=== PATIENT | male | born 1950 | race Native Hawaiian/Other Pacific Islander ===

== ENCOUNTER 2017-02-22 08:50 | Inpatient (IN) | payer MEDICARE, MEDICAID ==
[2016-11-19 22:13] VITALS: PULSE 102
[2017-02-21 08:33] VITALS: BMI 16.1
[2017-02-22 09:25] LABS: BASO % 0.5 % (0.0-2.0); EOS % 0.3 % (0.0-4.0); HEMATOCRIT 31.9 % (35.0-51.0); LYMPH # 0.9 K/uL (1.0-4.3); LYMPH % 8.9 % (20.0-40.0); MEAN CELL VOLUME 89.2 fL (80.0-94.0); MEAN CORPUSCULAR HEMOGLOBIN 28.8 pg (27.0-31.0); MEAN CORPUSCULAR HGB CONC 32.3 g/dL (33.0-37.0); MONO # 0.7 K/uL (0.0-0.8); MONO % 7.2 % (0.0-10.0); PLATELET COUNT 346 K/uL (130-400); RED CELL DISTRIBUTION WIDTH 16.8 % (11.5-14.5); WHITE BLOOD COUNT 9.9 K/uL (4.8-10.8)
[2017-02-22 09:30] LABS: POTASSIUM 5.2 mmol/L (3.6-5.2)
[2017-02-22 09:34] LABS: CALCIUM 9.3 mg/dl (8.6-10.4)
[2017-02-22 09:51] LABS: BASOPHIL 1 % (0-2); EOSINOPHIL 1 % (0-4); NEUTROPHIL 77 % (50-75); REACTIVE LYMPHOCYTES 1 % (0-0); TOTAL CELLS COUNTED 100
[2017-02-22] MEDS ORDERED: Acetylcysteine 20% Inhal Soln (4ml) INH ONE (11:45)
[2017-02-22] MEDS ORDERED: Midazolam 2 MG/2 ML VIAL ONE ×2 (12:08→12:55)
[2017-02-22] MEDS ORDERED: Iodixanol 320 MG/ML 200 ML BOTTLE IV ONE (12:09)
[2017-02-22] MEDS ORDERED: Iodixanol 320 MG/ML 100 ML BOTTLE IV ONE (14:11)
--- NOTE | 2017-02-22 17:21 | CP.SDSHP ---
Same Day Surgery H & P - History Proposed Procedure: see enclosed H and P. - Allergies Allergies: Allergies No Known Allergies Allergy (Verified 02/22/17 09:06) - Physical Exam Vital Signs: Vital Signs 02/22/17 09:45 Temperature 97.9 F Pulse Rate 94 H Respiratory 18 Rate Blood Pressure 131/66 O2 Sat by Pulse 98 Oximetry Short Stay Discharge - Short Stay Discharge Admitting Diagnosis/Reason for Visit: PVD,NECROSIS OF RIGHT PHLANGES,ANNEURYSM TO LEFT E Disposition: HOME/ ROUTINE
--- NOTE | 2017-02-22 17:22 | OP ---
PROCEDURE DATE: 02/22/2017 PREOPERATIVE DIAGNOSES: Peripheral vascular disease with gangrene of the second and third toes of th e right foot. POSTOPERATIVE DIAGNOSIS: Chronic total occlusion of the right superficial femoral artery. PROCEDURES PERFORMED: Retrograde access of left common femoral artery, selective catheter placement in the right popliteal artery via contralateral approach, abdominal aortography with bilateral iliofe moral runoff, bilateral lower extremity angiography, selective angiography right popliteal artery, us e of the [place] Ocelot chronic total occlusion Lumivascular device, placement of distal embolic prot ection in the right popliteal artery, drug-coated balloon angioplasty of the right superficial femora l artery. SURGEON: Sergio Donovan MD. REFERRING PHYSICIAN: Carmelo Wheeler MD; Gab Khanna DPM. COMPLICATIONS: None. HISTORY: The patient is a 66-year-old [place] male with a past medical history of hypertension, hyp ercholesterolemia, peripheral vascular disease with previous endovascular intervention of bilateral s uperficial femoral arteries, who presents with gangrene of the second and third toes of the right maria t. The patient has undergone previous endovascular intervention with atherectomy and stenting of the right superficial femoral artery. The patient developed progressive gangrene and therefore was refe rred for endovascular intervention due to abnormal arterial duplex. DESCRIPTION OF PROCEDURE: After obtaining informed consent, the patient was prepped and draped in [facility] sterile fashion. The left groin was anesthetized with 2% lidocaine solution. A 5-Maltese sheath was inserted into the left common femoral artery via modified Seldinger technique. An Omniflush cath eter was advanced to infrarenal abdominal aorta. Abdominal aortography was performed. The catheter was positioned at the iliac bifurcation. Bilateral iliofemoral runoff was performed with full visual ization to the level of the feet bilaterally. The patient was then prepared for intervention which i s described separately below. FINDINGS: The infrarenal abdominal aorta is free of aneurysm or dissection. Bilateral renal arterie s arise normally and are free of stenosis. Eccentric calcification is noted in bilateral common coretta c and external iliac arteries. In the left leg, the left common femoral artery has moderate disease. There is diffuse disease of the profunda femoris. Diffuse disease of the proximal superficial femo ral artery is noted. There is a 95% stenosis of the left distal superficial femoral artery. A 90% s tenosis is noted of the proximal popliteal artery. A 2-vessel runoff is noted to the foot. In the right leg, there is diffuse disease of the right profunda femoris. There is a 100% occlusion of the proximal right superficial femoral artery. This is a chronic total occlusion. This is proxim al to a previously placed stent. The vessel reconstitutes at the level of the proximal right poplite al artery. There is mild disease in the popliteal artery with primarily 2-vessel runoff to the feet. INTERVENTION: The 5-Maltese sheath was exchanged for a 6 x 45 Cook sheath, which was selectively plac ed in the right common femoral artery via contralateral approach. The [employer] Ocelot Lumivascular shopp ronic total occlusion crossing device was loaded onto an [employer] ES guidewire and advanced to the proximal cap of the chronic total occlusion. Using Lumivascular technology, the Ocelot device wa s advanced through the chronic total occlusion with visualization of the intravascular space. The di stal cap was crossed using the Ocelot device. The guidewire was advanced to the popliteal artery. T he Ocelot device was removed. The patient had previously been anticoagulated with heparin to achieve a therapeutic activated clotting time. A Trailblazer catheter was advanced over the [employer] ES guidewire. Selective popliteal angiography was performed. The guidewire was removed and then Abb ame Barewire was advanced and placed into the distal peroneal artery. The Trailblazer catheter was r emoved. The Emboshield filter was deployed in the distal popliteal artery. Angioplasty was performed with a 4 x 200 mm balloon at nominal pressure. This balloon was removed. A drug-coated balloon angioplasty with prolonged balloon inflation was performed in the distal right superficial femoral artery with a 5 x 100 mm balloon. Subsequent angioplasty was then performed in a distal to proximal fashion. The balloon was then removed and a second 5 x 80 mm drug-coated balloon was positioned in the proximal p ortion of the right superficial femoral artery and prolonged balloon angioplasty was performed. The balloon was removed. Final angiography revealed brisk antegrade flow. There was some mild debris no jitendra within the previously stented segment. Given brisk antegrade flow, all catheters were then remov ed along with retrieval of the filter. The sheath was exchanged for a 6-Maltese short sheath. The pa tient was brought to recovery room in stable condition. CONCLUSIONS: Chronic total occlusion of the right superficial femoral artery, successful crossing us ing the [place] Ocelot chronic total occlusion crossing device, along with drug-coated balloon angiop lasty of the right superficial femoral artery. PLAN: The patient will continue with antiplatelet therapy. He will follow up with his marketing underwriter jaime lindsey further management. Sergio Donovan MD cc: [phone] TT: 02/22/2017 17:21:55 mn
[2017-02-22] MEDS ORDERED: Sodium Chloride 0.45% 1,000 ML IV SCH (17:30)
[2017-02-22] MEDS ORDERED: Oxycodone/Acetaminophen 5/325 mg Tab PO PRN (19:34)
[2017-02-22] MEDS: diltiaZEM 180 mg/24 Hours CD Cap PO SCH (20:20)
[2017-02-23 01:17] VITALS: TEMP 98
[2017-02-23 08:19] VITALS: BP 176/75; PULSE 75; RESP 19; O2SAT 97
[2017-02-23] MEDS: diltiaZEM 180 mg/24 Hours CD Cap PO SCH (09:42)
[2017-02-23] MEDS ORDERED: diltiaZEM 180 mg/24 Hours CD Cap PO SCH (10:00)
--- NOTE | 2017-02-23 17:36 | CP.PCM.PN ---
Subjective - Date & Time of Evaluation Date of Evaluation: 02/23/17 Time of Evaluation: 11:00 - Subjective Subjective: Alert, awake, no sob or chest pains, NAD. Objective - Vital Signs/Intake and Output Vital Signs (last 24 hours): Temp Pulse Resp BP Pulse Ox 98 F 75 19 176/75 H 97 02/23/17 08:18 02/23/17 08:18 02/23/17 08:18 02/23/17 08:18 02/23/17 08:18 Intake and Output: 02/23/17 02/23/17 06:59 18:59 Intake Total 620 Output Total 200 150 Balance 420 -150 - Labs Labs: 02/22/17 09:12 02/22/17 09:12 PT 10.9 SECONDS (9.7-12.2) 02/22/17 09:12 INR 1.0 02/22/17 09:12 APTT 33 SECONDS (21-34) 02/22/17 09:12 Assessment and Plan - Assessment and Plan (Free Text) Assessment: Patient is seen and examined. Awake, alert, non ambulatory secondary to severe PVD. denies sob or chest pains ,NAD. S/P angiogram yesterday, left groin with no hematoma. D/W DR Donovan, plan to discharge home with family today. To continue with prior medications and follow up in the office in 1 week.
== END 2017-02-23 13:10 | disposition home or self-care (01) | DRG 254 ==
LOC: C.CATHLAB 08:50 → C.5T 15:18
PROVIDERS: ADMIT Internal Medicine Cardiovascular Disease; ATTEND Internal Medicine Cardiovascular Disease
PROC: 047K3Z1 Dilation of Right Femoral Artery using Drug-Coated Balloon, Percutaneous Approach (ICD-10-PCS; principal; 2017-02-22 11:00)
DX: I70.268 Atherosclerosis of native arteries of extremities with gangrene, other extremity (principal); I10 Essential (primary) hypertension; E78.00 Pure hypercholesterolemia, unspecified

== ENCOUNTER 2017-07-19 10:08 | Inpatient (IN) | payer MEDICARE, MEDICAID ==
[2017-07-19 10:09] VITALS: BMI 16.0
--- NOTE | 2017-07-19 10:31 | C.PDOC ---
History Of Present Illness 67 year old male sent to ED for hyperkalemia and acute renal failure found on preop blood work. Patient scheduled to have angio done of RLE today by Dr. Donovan, however procedure not done due to abnormal labs. Patient c/o pain at B/L feet, has h/o severe PVD. He denies chest pain, SOB, fever. Time Seen by Provider: 07/19/17 10:15 Chief Complaint (Nursing): Medical Clearance History Per: Patient, Family History/Exam Limitations: no limitations Onset/Duration Of Symptoms: Persistent Severity: Moderate Past Medical History Reviewed: Historical Data, Nursing Documentation, Vital Signs Vital Signs: Last Vital Signs Temp 97.8 F 07/19/17 15:13 Pulse 83 07/19/17 15:13 Resp 20 07/19/17 15:13 BP 120/57 L 07/19/17 15:13 Pulse Ox 97 07/19/17 18:37 - Medical History PMH: Anxiety, Atrial Fibrillation, COPD, Diabetes, Emphysema, HTN, Hypercholesterolemia, Peripheral Edema (RT TOES GANGRENE), TIA (1995) - [facility] Procedures DILATION OF R FEM ART USING DRUG BLLN, PERC APPROACH (02/22/17) Family History: States: No Known Family Hx - Social History Hx Tobacco Use: Yes ("QUIT") Hx Alcohol Use: No Hx Substance Use: No - Immunization History Hx Tetanus Toxoid Vaccination: No Hx Influenza Vaccination: No Hx Pneumococcal Vaccination: No Review Of Systems Except As Marked, All Systems Reviewed And Found Negative. Constitutional: Negative for: Fever, Chills Cardiovascular: Negative for: Chest Pain Respiratory: Negative for: Shortness of Breath Gastrointestinal: Negative for: Nausea, Vomiting, Abdominal Pain, Diarrhea Musculoskeletal: Positive for: Other (B/L leg/foot pain with wounds on digits ) Physical Exam - Physical Exam Appears: Well, Non-toxic, No Acute Distress Skin: Warm, Dry Head: Normacephalic Eye(s): bilateral: Normal Inspection Oral Mucosa: Moist Cardiovascular: Rhythm Regular Respiratory: Normal Breath Sounds, No Rales, No Rhonchi, No Wheezing Gastrointestinal/Abdominal: Normal Exam, Bowel Sounds, Soft, No Tenderness Extremity: Tenderness, No Calf Tenderness, No Swelling, Other (right 2nd and 3rd toe chronic ulcers/gangrene, dark/chronic skin colors changes feet/lower extremties ) Neurological/Psych: Oriented x3 ED Course And Treatment - Laboratory Results Result Diagrams: 07/19/17 14:45 O2 Sat by Pulse Oximetry: 97 (RA) Pulse Ox Interpretation: Normal Progress Note: Prior preop blood work and EKG reviewed - no peaked T waves or QRS widening on EKG. However K significantly elevated (even when repeated). Patient given IV calcium gluconate, Insulin IV + 1amp D50, bicarbonate amp, kayexalate PO. IV morphine given for foot pain. Spoke with scraper hand Dr. Donovan, who requests patient be admitted to Dr. Cadet's service. Reevaluation Time: 12:35 Reassessment Condition: Improved (Patient resting comfortably, pain improved after IV morphine) - Physician Consult Information Physician Contacted: Janell Cadet Outcome Of Conversation: Discussed patient with Dr. Cadet, agrees with admission to his service for hyperkalemia, acute renal failure/dehydration. Disposition - Disposition Disposition: HOSPITALIZED Disposition Time: 11:38 Condition: STABLE - Clinical Impression Clinical Impression: Wound, open, toe, Hyperkalemia, Acute renal failure, Dehydration - Scribe Statement The provider has reviewed the documentation as recorded by the Scribe Decision To Admit - Pt Status Changed To: Hospital Disposition Of: Inpatient - Admit Certification Admit to Inpatient:: After my assessment, the patient will require hospitalization for at least two midnights. This is because of the severity of symptoms shown, intensity of services needed, and/or the medical risk in this patient being treated as an outpatient. - InPatient: Physician Admission Certification: I certify that this patient requires 2 or more midnights of care for the following reason:: see notes - . Bed Request Type: Telemetry Admitting Physician: Janell Cadet Patient Diagnosis: Wound, open, toe, Hyperkalemia, Acute renal failure, Dehydration
[2017-07-19] MEDS ORDERED: (Novolin R) Insulin Human Regular 100 units/ml vial IV STA (10:32)
[2017-07-19] MEDS ORDERED: Calcium Gluconate 4.65 MEQ in Dextrose 5% In Water 100 ML IV ONE (10:32)
[2017-07-19] MEDS ORDERED: Sod Polystyrene Sulf 15 gm/60 ml Oral Susp PO STA (10:33)
[2017-07-19] MEDS ORDERED: Sodium Chloride 0.9% 500 ML IV ONE (10:33)
[2017-07-19] MEDS ORDERED: Dextrose 50% SYRINGE Inj (50 ml) IVP STA (10:33)
[2017-07-19] MEDS ORDERED: Sodium Bicarbonate (8.4%) 50 Meq Syringe IVP ONE (10:33)
[2017-07-19] MEDS ORDERED: Sod Polystyrene Sulf 15 gm/60 ml Oral Susp ONE (10:48)
[2017-07-19] MEDS ORDERED: (Novolin R) Insulin Human Regular 100 units/ml vial ONE (10:48)
[2017-07-19] MEDS ORDERED: Calcium Gluconate 4.65 mEq/10 ml Inj ONE (10:49)
[2017-07-19] MEDS ORDERED: Sodium Chloride 0.9% 1,000 ML ONE (10:49)
[2017-07-19] MEDS ORDERED: Sodium Bicarbonate (8.4%) 50 Meq Syringe ONE (10:49)
[2017-07-19] MEDS ORDERED: Dextrose 50% SYRINGE Inj (50 ml) ONE (10:49)
[2017-07-19] MEDS ORDERED: Morphine 4 MG/ML VIAL ONE (11:33)
[2017-07-19] MEDS: Sodium Chloride 0.9% 1,000 ML IV SCH (12:37)
--- NOTE | 2017-07-19 12:58 | CP.PCM.PN ---
Subjective - Date & Time of Evaluation Date of Evaluation: 07/19/17 Time of Evaluation: 12:45 - Subjective Subjective: PGY2 medicine note for Dr. Martinez Patient is a 67 year old male with PMHx significant for PAD, HTN, DM, who was sent to the ER from same day surgery for hyperkalemia. Patient had blood work prior to planned left leg angio that showed potassium of 6.4, repeat 6.5. Creatinine was also elevated at 1.8. Patient's prior creatinine in our EMR was 1.5 in 01/2017. Patient denies prior history of hyperkalemia or renal insufficiency. Patient has had issues with poor circulation for many years and has had three prior angios. Patient had right leg angio with stent of superficial femoral artery in 01/[address] Donovan. Patient follows with Dr. Pelletier for podiatry as outpatient and Dr. Tan at wound care center. Patient was last seen at wound care this past Sunday, and started on Augmentin for purulent non-healing left foot wound. Patient was referred to Dr. Donovan office on Sunday and plan was made at that time for angio of left leg today. Patient denies history of kidney issues but does admit to poor water intake recently. Patient has been trying to drink less water so he will urinate less as he has difficulty ambulating due to foot wounds. History supplemented by patient's daughter. Patient is unsure of history of afib but daughter states she believes that is why patient is on digoxin. Patient had recent nuclear stress test in 05/2017 that showed normal perfusion, EF of 55-60%, normal size LV. Podiatry: [facility] Wound care: Domin[facility] Cardiology: [place] PMD: [place] meds: tramadol 50mg PO BID prn, terbinafine 250mg daily, januvia 100mg daily, lyrica 75mg TID, lisinopril 5mg daily, dutasteride 0.5mg daily, diltiazem 180mg ER, digoxin 0.25mg daily, plavix 75mg daily, cilostazol 100mg BID, invokamet 150/1000 BID, lipitor 40mg HS, asa 81mg, augmentin started on at wound care center Objective - Vital Signs/Intake and Output Vital Signs (last 24 hours): Temp Pulse Resp BP Pulse Ox 97.7 F 85 21 131/68 97 07/19/17 10:10 07/19/17 11:29 07/19/17 11:29 07/19/17 11:29 07/19/17 11:43 - Medications Medications: Current Medications Amoxicillin/Clavulanate Potassium (Augmentin 500 Mg-125 Mg Tab) 1 tab PO BID [facility] Aspirin (Ecotrin) 81 mg PO DAILY [facility] Cilostazol (Pletal) 100 mg PO BID [facility] Clopidogrel Bisulfate (Plavix) 75 mg PO DAILY [facility] Digoxin (Lanoxin) 0.25 mg PO DAILY [facility] Diltiazem HCl (Cardizem Cd) 180 mg PO DAILY [facility] Home Med (Atorvastatin [Lipitor]) 40 mg PO HS [facility] Home Med (Dutasteride [Dutasteride]) 0.5 mg PO DAILY [facility] Home Med (Multivit-Min/Fa/Lycopen/Lutein [Centrum Silver Tablet]) 1 each PO DAILY [facility] Sodium Chloride (Sodium Chloride 0.9%) 1,000 mls @ 100 mls/hr IV .Q10H [facility] Last Admin: 07/19/17 12:37 Dose: 100 mls/hr Insulin Human Regular (Novolin R) 0 unit SC ACHS [facility] PRN Reason: Protocol Pregabalin (Lyrica) 75 mg PO TID ARUN Tramadol HCl (Ultram) 50 mg PO BID PRN PRN Reason: Pain, moderate (4-7) - Constitutional Appears: Non-toxic, No Acute Distress, Chronically Ill - Head Exam Head Exam: ATRAUMATIC, NORMOCEPHALIC - Eye Exam Eye Exam: EOMI - ENT Exam ENT Exam: Mucous Membranes Dry - Respiratory Exam Respiratory Exam: Clear to Ausculation Bilateral, NORMAL BREATHING PATTERN. absent: Respiratory Distress - Cardiovascular Exam Cardiovascular Exam: +S1, +S2 - GI/Abdominal Exam GI & Abdominal Exam: Soft, Normal Bowel Sounds. absent: Tenderness - Extremities Exam Extremities Exam: absent: Pedal Edema Additional comments: darkened skin to lower extremities right foot with dry gangrene second toe left foot with first and second toes with thickened nails, erythematous - Neurological Exam Neurological Exam: Alert, Awake - Psychiatric Exam Psychiatric exam: Normal Affect - Skin Skin Exam: Warm Assessment and Plan - Assessment and Plan (Free Text) Assessment: Hyperkalemia Pt given calcium gluconate, D50, insulin IV, bicarb, kayexalate in ER Will repeat BMP at 3PM holding lisinopril for side effect of hyperkalemia EKG- NSR @87bpm, does not demonstrate peaked T waves monitor on telemetry Acute on chronic renal insufficiency Last creatinine in 01/2017 was 1.5, was 1.2 in 10/2016 patient clinically dry on examination patient given 1L saline bolus in ER, will continue IVF nephrology, Dr. Daniels, consulted- help appreciated will hold invokamet and Januvia as patient has reduced renal function Peripheral Vascular disease Patient with history of angriography x 3 Continue home medications plavix 75mg daily, cilostazol 100mg BID, aspirin 81mg continue tramadol 50mg PO BID prn for pain Dr. Donovan consulted- help appreciated Bilateral foot wounds right foot with dry gangrene second and third toes non-healing wounds to left foot s/p injury continue wound care patient started Augmentin on Sunday, prescribed by wound care center will start renal dose of zosyn HTN holding lisinopril, will continue to monitor and add medication if necessary Hx A-fib pt unsure of history but takes digoxin continue home medication digoxin 0.25mg daily, diltiazem 180 CD Diabetes holding invokamet and januvia due to renal insufficiency, will give sliding scale with accuchecks ACHS continue Lyrica 75mg TID for neuropathy diabetic diet patient reports last A1c in March was less than 7 BPH continue dutasteride 0.5mg daily Hyperlipidemia continue equivalent for lipitor 50mg HS Prophylactic measure heparin 5000u sc q12h All medical management as per Dr. Martinez
[2017-07-19] MEDS: Piperacill/Tazo 2.25gm in Dex 2.25 GM/50 ML BAG IVPB SCH ×2 (14:49→21:21)
[2017-07-19 14:55] LABS: POTASSIUM 5.4 mmol/L (3.6-5.2)
[2017-07-19 14:59] LABS: CALCIUM 9.3 mg/dl (8.6-10.4)
[2017-07-19] MEDS ORDERED: Sod Polystyrene Sulf 15 gm/60 ml Oral Susp PO ONE ×2 (15:30→17:00)
[2017-07-19] MEDS: (Novolin R) Insulin Human Regular 100 units/ml vial SC SCH ×2 (17:12→21:20)
[2017-07-19] MEDS: Cilostazol 100 mg Tab UD PO SCH (17:52)
[2017-07-19] MEDS ORDERED: Amoxicillin-Clav 500-125 mg Tab PO SCH (18:00)
[2017-07-20] MEDS: Sodium Chloride 0.9% 1,000 ML IV SCH ×4 (01:56→23:16)
[2017-07-20] MEDS: Piperacill/Tazo 2.25gm in Dex 2.25 GM/50 ML BAG IVPB SCH ×4 (02:14→19:55)
[2017-07-20] MEDS: (Novolin R) Insulin Human Regular 100 units/ml vial SC SCH ×4 (07:37→23:14)
[2017-07-20 08:08] LABS: BASO % 0.5 % (0.0-2.0); EOS # 0.1 K/uL (0.0-0.7); EOS % 0.8 % (0.0-4.0); HEMATOCRIT 33.9 % (35.0-51.0); LYMPH # 1.3 K/uL (1.0-4.3); LYMPH % 13.9 % (20.0-40.0); MEAN CELL VOLUME 91.5 fL (80.0-94.0); MEAN CORPUSCULAR HEMOGLOBIN 30.4 pg (27.0-31.0); MEAN CORPUSCULAR HGB CONC 33.2 g/dL (33.0-37.0); MEAN PLATELET VOLUME 7.1 fL (7.2-11.7); MONO # 0.9 K/uL (0.0-0.8); RED CELL DISTRIBUTION WIDTH 16.5 % (11.5-14.5); WHITE BLOOD COUNT 9.2 K/uL (4.8-10.8)
--- NOTE | 2017-07-20 08:08 | CP.PCM.CON ---
History of Present Illness - History of Present Illness History of Present Illness: Patient is a 67 year old male with PMH HT, atrial fibrillation, PAD, and CAD who is admittedfor hyperkalemia and dehydration. The patient was brought in electively for angiogram and likely intervention of the LLE due to progressive ischemia of the L foot. The patient has had previous bilateral endovascular interventions. The patient recently had trauma to his left foot. This occurred one month ago. The daughter thought the discoloration of the foot was due to ecchymosis but a reviewe by his medical laboratory technologist felt the foot was becoming ischemic. He was found to have hyperkalemia and renal insufficiency. The procedure was cancelled. He denies chest pain or dyspnea. EKG showed no evidence of peaked T waves. Review of Systems - Constitutional Constitutional: absent: As Per HPI, Anorexia, Chills, Daytime Sleepiness, Excessive Sweating, Fatigue, Fever, Frequent Falls, Headache, Increased Appetite , Lethargy, Malaise, Night Sweats, Snoring, Sleep Apnea, Weight Gain, Weight Loss, Weakness, Other - EENT Eyes: absent: As Per HPI, Blind Spots, Blurred Vision, Change in Vision, Decreased Night Vision, Diplopia, Discharge, Dry Eye, Exophthalmos, Floaters, Irritation, Itchy Eyes, Loss of Peripheral Vision, Pain, Photophobia, Requires Corrective Lenses, Sees Flashes, Spots in Vision, Tunnel Vision, Other Visual Disturbances, Loss of Vision, Other Ears: absent: As Per HPI, Decreased Hearing, Ear Discharge, Ear Pain, Tinnitus, Abnormal Hearing, Disequilibrium, Dizziness, Other Nose/Mouth/Throat: absent: As Per HPI, Epistaxis, Nasal Congestion, Nasal Discharge, Nasal Obstruction, Nasal Trauma, Nose Pain, Post Nasal Drip, Sinus Pain, Sinus Pressure, Bleeding Gums, Change in Voice, Dental Pain, Dry Mouth, Dysphagia, Halitosis, Hoarsness, Lip Swelling, Mouth Lesions, Mouth Pain, Odynophagia, Sore Throat, Throat Swelling, Tongue Swelling, Facial Pain, Neck Pain, Neck Mass, Other - Cardiovascular Cardiovascular: absent: As Per HPI, Acrocyanosis, Chest Pain, Chest Pain at Rest , Chest Pain with Activity, Claudication, Diaphoresis, Dyspnea, Dyspnea on Exertion, Edema, Irregular Heart Rhythm, Pain Radiating to Arm/Neck/Jaw, Leg Edema, Leg Ulcers, Lightheadedness, Orthopnea, Palpitations, Paroxysmal Nocturnal Dyspnea, Pedal Edema, Radiating Pain, Rapid Heart Rate, Slow Heart Rate, Syncope, Other - Respiratory Respiratory: absent: As Per HPI, Cough, Dyspnea, Hemoptysis, Dyspnea on Exertion , Wheezing, Snoring, Stridor, Pain on Inspiration, Chest Congestion, Excessive Mucous Production, Change in Mucous Color, Pain with Coughing, Other - Gastrointestinal Gastrointestinal: absent: As Per HPI, Abdominal Pain, Belching, Bloating, Change in Bowel Habits, Change in Stool Character, Coffee Ground Emesis, Constipation, Cramping, Diarrhea, Dyspepsia, Dysphagia, Early Satiety, Excessive Flatus, Fecal Incontinence, Heartburn, Hematemesis, Hematochezia, Loose Stools, Melena, Nausea, Odynophagia, Temesmus, Vomiting, Other - Genitourinary Genitourinary: absent: As Per HPI, Change in Urinary Stream, Difficulty Urinating, Dysuria, Flank Pain, Hematuria, Pyuria, Nocturia, Urinary Incontinence, Urinary Frequency, Urinary Hesitance, Urinary Urgency, Voiding Freq/Small Amts, Freq UTI, Hx Renal/Bladder Calculi, Hx /Renal Surgery, Bladder Distension, Other - Musculoskeletal Musculoskeletal: Radiating Pain into Limb - Integumentary Integumentary: absent: As Per HPI, Acne, Alopecia, Bleeding Lesions, Change in Hair, Change in Nails, Change in Pigmentation, Changing Lesions, Dry Skin, Erythema, Furuncle, Hirsutism, Lesions, New Lesions, Non-Healing Lesions, Photosensitivity, Pruritus, Rash, Skin Pain, Skin Ulcer, Sores, Striae, Swelling , Unusual Bruising, Wounds, Jaundice, Other - Neurological Neurological: absent: As Per HPI, Abnormal Gait, Abnormal Hearing, Abnormal Movements, Abnormal Speech, Behavioral Changes, Burning Sensations, Confusion, Convulsions, Disequilibrium, Dizziness, Numbness, Focal Weakness, Frequent Falls , Headaches, Lack of Coordination, Loss of Vision, Memory Loss, Paresthesias, Radicular Pain, Restless Legs, Sensory Deficit, Syncope, Tingling, Tremor, Vertigo, Weakness, Other Visual Disturbances, Other - Psychiatric Psychiatric: absent: As Per HPI, Abnormal Sleep Pattern, Anhedonia, Anxiety, Auditory Hallucinations, Behavioral Changes, Change in Appetite, Change in Libido, Confusion, Depression, Difficulty Concentrating, Hallucinations, Homicidal Ideation, Hopelessness, Irritability, Memory Loss, Mood Swings, Panic Attacks, Paranoia, Suicidal Ideation, Visual Hallucinations, Tactile Hallucinations, Other - Endocrine Endocrine: absent: As Per HPI, Change in Body Appearance, Change in Libido, Cold Intolorance, Deepening of Voice, Excessive Sweating, Fatigue, Flushing, Heat Intolorance, Increase in Ring/Shoe/Hat Size, Palpitations, Polydipsia, Polyphagia, Polyuria, Other - Hematologic/Lymphatic Hematologic: absent: As Per HPI, Easy Bleeding, Easy Bruising, Lymphadenopathy, Other Past Patient History - Past Medical History & Family History Past Medical History?: Yes - Past Social History Smoking Status: Former Smoker - CARDIAC Hx Atrial Fibrillation: Yes Hx Hypercholesterolemia: Yes Hx Hypertension: Yes Hx Peripheral Edema: Yes (RT TOES GANGRENE) - PULMONARY Hx Chronic Obstructive Pulmonary Disease (COPD): Yes Hx Emphysema: Yes - NEUROLOGICAL Hx Transient Ischemic Attacks (TIA): Yes (1995) - HEENT Hx HEENT Problems: Yes () - ENDOCRINE/METABOLIC Hx Endocrine Disorders: Yes Hx Diabetes Mellitus Type 2: Yes - HEMATOLOGICAL/ONCOLOGICAL Hx Blood Disorders: No - INTEGUMENTARY Hx Dermatological Problems: Yes Other/Comment: Toenail fungus on right leg, dark color on toes 1, 2,3,4 similar to gangrene as stated by Daughter. TOES ARE BLACKENED DRY GANGRENE RT FOOT/ WOUND LEFT FOOT - MUSCULOSKELETAL/RHEUMATOLOGICAL Hx Musculoskeletal Disorders: Yes Hx Falls: Yes - GASTROINTESTINAL Hx Gastrointestinal Disorders: No - GENITOURINARY/GYNECOLOGICAL Hx Genitourinary Disorders: No - PSYCHIATRIC Hx Anxiety: Yes Hx Substance Use: No - SURGICAL HISTORY Hx Surgeries: Yes Hx Angiogram: Yes (SEVERAL) Hx Angioplasty: Yes (RT LEG WITH STENT) - ANESTHESIA Hx Anesthesia: Yes Hx Anesthesia Reactions: No Hx Malignant Hyperthermia: No Has any member of the family had a problem w/ anesthesia?: No Meds Allergies/Adverse Reactions: Allergies Allergy/AdvReac Type Severity Reaction Status Date / Time No Known Allergies Allergy Verified 07/19/17 10:21 - Medications Medications: Current Medications Aspirin (Ecotrin) 81 mg PO DAILY [facility] Cilostazol (Pletal) 100 mg PO BID [facility] Last Admin: 07/19/17 17:52 Dose: 100 mg Clopidogrel Bisulfate (Plavix) 75 mg PO DAILY [facility] Digoxin (Lanoxin) 0.25 mg PO DAILY [facility] Diltiazem HCl (Cardizem Cd) 180 mg PO BID [facility] Finasteride (Proscar) 5 mg PO DAILY [facility] Heparin Sodium (Porcine) (Heparin) 5,000 units SC Q12 [facility] Last Admin: 07/19/17 21:22 Dose: 5,000 units Sodium Chloride (Sodium Chloride 0.9%) 1,000 mls @ 100 mls/hr IV .Q10H [facility] Last Admin: 07/20/17 01:56 Dose: Not Given Piperacillin Sod/Tazobactam Sod (Zosyn 2.25 Gm Iv Premix) 2.25 gm in 50 mls @ 100 mls/hr IVPB Q6H [facility] Last Admin: 07/20/17 02:14 Dose: 100 mls/hr Insulin Human Regular (Novolin R) 0 unit SC ACHS [facility] PRN Reason: Protocol Last Admin: 07/20/17 07:37 Dose: Not Given Multivitamins (Hexavitamin) 1 tab PO DAILY [facility] Pregabalin (Lyrica) 75 mg PO TID [facility] Last Admin: 07/19/17 17:52 Dose: 75 mg Rosuvastatin Calcium (Crestor) 20 mg PO HS [facility] Last Admin: 07/19/17 21:22 Dose: 20 mg Tramadol HCl (Ultram) 50 mg PO BID PRN PRN Reason: Pain, moderate (4-7) Last Admin: 07/19/17 20:43 Dose: 50 mg Physical Exam - Constitutional Appears: Non-toxic - Head Exam Head Exam: NORMAL INSPECTION - Eye Exam Eye Exam: Normal appearance - ENT Exam ENT Exam: Mucous Membranes Dry - Neck Exam Neck exam: Positive for: Full Rom - Respiratory Exam Respiratory Exam: NORMAL BREATHING PATTERN - Cardiovascular Exam Cardiovascular Exam: Irregular Rhythm - GI/Abdominal Exam GI & Abdominal Exam: Normal Bowel Sounds - Rectal Exam Rectal Exam: Deferred - Extremities Exam Extremities exam: Positive for: pedal edema Additional comments: discoloration of th forefoot of the left. necrotic toe of the right foot. - Back Exam Back exam: NORMAL INSPECTION - Neurological Exam Neurological exam: Alert, Oriented x3 - Psychiatric Exam Psychiatric exam: Normal Affect - Skin Skin Exam: Normal Color Results - Vital Signs Recent Vital Signs: Last Vital Signs Temp 97.5 F L 07/20/17 08:00 Pulse 108 H 07/20/17 08:00 Resp 19 07/20/17 08:00 BP 159/79 H 07/20/17 08:00 Pulse Ox 98 07/20/17 08:00 - Labs Result Diagrams: 07/19/17 14:45 Labs: Laboratory Results - last 24 hr 07/19/17 07/19/17 07/19/17 14:45 16:45 21:19 Sodium 141 Potassium 5.4 H Chloride 104 Carbon Dioxide 26 Anion Gap 16 BUN 32 H Creatinine 1.6 H Est GFR ( Amer) 52 Est GFR (Non-Af Amer) 43 POC Glucose (mg/dL) 106 136 H Random Glucose 73 L Calcium 9.3 07/20/17 06:53 Sodium Potassium Chloride Carbon Dioxide Anion Gap BUN Creatinine Est GFR ( Amer) Est GFR (Non-Af Amer) POC Glucose (mg/dL) 109 Random Glucose Calcium - EKG Data EKG Interpreted by: Myself Assessment & Plan (1) PAD (peripheral artery disease) Assessment and Plan: will defer angiogram at this time. Long discussion with the daughter regarding risk of contrast induced nephropathy and arrhythmia due to contrast and hyperkalemia. recommend antibiotics. order arterial duplex. Status: Acute (2) Acute renal failure Assessment and Plan: IV hydration. recommend renal evaluation Status: Acute (3) Hyperkalemia Assessment and Plan: medical therapy to reduce potassium Status: Acute
--- NOTE | 2017-07-20 08:15 | CP.PCM.PN ---
Subjective - Date & Time of Evaluation Date of Evaluation: 07/20/17 Time of Evaluation: 07:30 - Subjective Subjective: patient has less pain. Objective - Vital Signs/Intake and Output Vital Signs (last 24 hours): Temp Pulse Resp BP Pulse Ox 97.5 F L 108 H 19 159/79 H 98 07/20/17 08:00 07/20/17 08:00 07/20/17 08:00 07/20/17 08:00 07/20/17 08:00 Intake and Output: 07/20/17 07/20/17 06:59 18:59 Intake Total 2250 Output Total 600 Balance 1650 - Medications Medications: Current Medications Aspirin (Ecotrin) 81 mg PO DAILY [facility] Cilostazol (Pletal) 100 mg PO BID [facility] Last Admin: 07/19/17 17:52 Dose: 100 mg Clopidogrel Bisulfate (Plavix) 75 mg PO DAILY [facility] Digoxin (Lanoxin) 0.25 mg PO DAILY [facility] Diltiazem HCl (Cardizem Cd) 180 mg PO BID [facility] Finasteride (Proscar) 5 mg PO DAILY [facility] Heparin Sodium (Porcine) (Heparin) 5,000 units SC Q12 [facility] Last Admin: 07/19/17 21:22 Dose: 5,000 units Sodium Chloride (Sodium Chloride 0.9%) 1,000 mls @ 100 mls/hr IV .Q10H [facility] Last Admin: 07/20/17 01:56 Dose: Not Given Piperacillin Sod/Tazobactam Sod (Zosyn 2.25 Gm Iv Premix) 2.25 gm in 50 mls @ 100 mls/hr IVPB Q6H [facility] Last Admin: 07/20/17 02:14 Dose: 100 mls/hr Insulin Human Regular (Novolin R) 0 unit SC ACHS [facility] PRN Reason: Protocol Last Admin: 07/20/17 07:37 Dose: Not Given Multivitamins (Hexavitamin) 1 tab PO DAILY [facility] Pregabalin (Lyrica) 75 mg PO TID [facility] Last Admin: 07/19/17 17:52 Dose: 75 mg Rosuvastatin Calcium (Crestor) 20 mg PO HS [facility] Last Admin: 07/19/17 21:22 Dose: 20 mg Tramadol HCl (Ultram) 50 mg PO BID PRN PRN Reason: Pain, moderate (4-7) Last Admin: 07/19/17 20:43 Dose: 50 mg - Labs Labs: 07/19/17 14:45 - Constitutional Appears: Non-toxic - Head Exam Head Exam: NORMAL INSPECTION - Eye Exam Eye Exam: Normal appearance - ENT Exam ENT Exam: Mucous Membranes Moist - Neck Exam Neck Exam: Full ROM - Respiratory Exam Respiratory Exam: NORMAL BREATHING PATTERN - Cardiovascular Exam Cardiovascular Exam: Irregular Rhythm - GI/Abdominal Exam GI & Abdominal Exam: Normal Bowel Sounds - Rectal Exam Rectal Exam: Deferred - Extremities Exam Extremities Exam: absent: Pedal Edema - Back Exam Back Exam: NORMAL INSPECTION - Neurological Exam Neurological Exam: Alert - Psychiatric Exam Psychiatric exam: Normal Affect - Skin Skin Exam: Normal Color Assessment and Plan (1) PAD (peripheral artery disease) Assessment & Plan: recommend arterial duplex. Status: Acute (2) Acute renal failure Assessment & Plan: improving with hydration Status: Acute (3) Hyperkalemia Assessment & Plan: improved Status: Acute (4) Atrial fibrillation Assessment & Plan: increase cardizem. not candidate for anticoagulation. Status: Acute
[2017-07-20 08:30] LABS: CHLORIDE 109 mmol/L (98-107); POTASSIUM 5.3 mmol/L (3.6-5.2); SODIUM 143 mmol/L (132-148)
[2017-07-20 08:32] LABS: BILIRUBIN,TOTAL 0.4 mg/dL (0.2-1.3); GFR AFRICAN-AMERICAN > 60
[2017-07-20 08:33] LABS: ALB/GLOB RATIO 1.1 (1.0-2.1); ALKALINE PHOSPHATASE 100 U/L (38-126); ALT/SGPT 48 U/L (21-72); AST/SGOT 40 U/L (17-59); BLOOD UREA NITROGEN 21 mg/dL (9-20); CALCIUM 8.7 mg/dl (8.6-10.4); CARBON DIOXIDE 24 mmol/L (22-30); GLUCOSE,RANDOM 92 mg/dL (75-110); PHOSPHOROUS 3.6 mg/dL (2.5-4.5); TOTAL PROTEIN 7.3 g/dL (6.3-8.3)
[2017-07-20 08:34] LABS: MAGNESIUM 1.4 mg/dL (1.6-2.3)
[2017-07-20] MEDS ORDERED: Sod Polystyrene Sulf 15 gm/60 ml Oral Susp PO ONE (09:45)
[2017-07-20] MEDS ORDERED: diltiaZEM 180 mg/24 Hours CD Cap PO SCH (10:00)
[2017-07-20] MEDS: Multiple Vitamins Tab PO SCH (10:15)
[2017-07-20] MEDS: Cilostazol 100 mg Tab UD PO SCH ×2 (10:16→17:54)
[2017-07-20] MEDS: Digoxin 250 mcg (0.25 mg) Tab PO SCH (10:16)
[2017-07-20] MEDS: Magnesium Oxide 400 mg Tab UD PO SCH ×2 (12:57→19:54)
[2017-07-20] MEDS: diltiaZEM 180 mg/24 Hours CD Cap PO SCH ×2 (13:22→17:53)
[2017-07-20] MEDS: Acetylcysteine 20% Inhal Soln (4ml) PO SCH ×2 (13:40→21:48)
[2017-07-20 14:01] LABS: CHLORIDE 108 mmol/L (98-107); POTASSIUM 4.3 mmol/L (3.6-5.2); SODIUM 145 mmol/L (132-148)
[2017-07-20 14:04] LABS: CARBON DIOXIDE 23 mmol/L (22-30); GFR AFRICAN-AMERICAN > 60
[2017-07-20 14:05] LABS: BLOOD UREA NITROGEN 19 mg/dL (9-20); CALCIUM 9.3 mg/dl (8.6-10.4); GLUCOSE,RANDOM 125 mg/dL (75-110)
--- NOTE | 2017-07-20 15:48 | CP.PCM.PN ---
Subjective - Date & Time of Evaluation Date of Evaluation: 07/20/17 Time of Evaluation: 09:10 - Subjective Subjective: PGY2 medicine progress note for Dr. Martinez: Patient seen and examined. Patient eating well, no complaints at this time. Family present at bedside. Objective - Vital Signs/Intake and Output Vital Signs (last 24 hours): Temp Pulse Resp BP Pulse Ox 98 F 119 H 20 122/60 97 07/20/17 15:20 07/20/17 15:20 07/20/17 15:20 07/20/17 15:20 07/20/17 15:20 Intake and Output: 07/20/17 07/20/17 06:59 18:59 Intake Total 2250 Output Total 600 Balance 1650 - Medications Medications: Current Medications Acetylcysteine (Acetylcysteine 20%) 6 ml PO BID [facility] Stop: 07/21/17 18:01 Last Admin: 07/20/17 13:40 Dose: 6 ml Aspirin (Ecotrin) 81 mg PO DAILY [facility] Last Admin: 07/20/17 10:16 Dose: 81 mg Cilostazol (Pletal) 100 mg PO BID [facility] Last Admin: 07/20/17 10:16 Dose: 100 mg Clopidogrel Bisulfate (Plavix) 75 mg PO DAILY [facility] Last Admin: 07/20/17 10:16 Dose: 75 mg Digoxin (Lanoxin) 0.25 mg PO DAILY [facility] Last Admin: 07/20/17 10:16 Dose: 0.25 mg Diltiazem HCl (Cardizem Cd) 180 mg PO BID [facility] Last Admin: 07/20/17 13:22 Dose: 180 mg Finasteride (Proscar) 5 mg PO DAILY [facility] Last Admin: 07/20/17 10:15 Dose: 5 mg Heparin Sodium (Porcine) (Heparin) 5,000 units SC Q12 [facility] Last Admin: 07/20/17 10:14 Dose: 5,000 units Sodium Chloride (Sodium Chloride 0.9%) 1,000 mls @ 100 mls/hr IV .Q10H [facility] Last Admin: 07/20/17 13:49 Dose: Not Given Piperacillin Sod/Tazobactam Sod (Zosyn 2.25 Gm Iv Premix) 2.25 gm in 50 mls @ 100 mls/hr IVPB Q6H [facility] Last Admin: 07/20/17 13:40 Dose: 100 mls/hr Insulin Human Regular (Novolin R) 0 unit SC ACHS [facility] PRN Reason: Protocol Last Admin: 07/20/17 13:40 Dose: 1 unit Magnesium Oxide (Mag-Ox) 400 mg PO BID [facility] Stop: 07/25/17 12:01 Last Admin: 07/20/17 12:57 Dose: 400 mg Multivitamins (Hexavitamin) 1 tab PO DAILY [facility] Last Admin: 07/20/17 10:15 Dose: 1 tab Pregabalin (Lyrica) 75 mg PO TID [facility] Last Admin: 07/20/17 13:40 Dose: 75 mg Rosuvastatin Calcium (Crestor) 20 mg PO HS [facility] Last Admin: 07/19/17 21:22 Dose: 20 mg Tramadol HCl (Ultram) 50 mg PO BID PRN PRN Reason: Pain, moderate (4-7) Last Admin: 07/19/17 20:43 Dose: 50 mg - Labs Labs: 07/20/17 08:01 07/20/17 13:48 - Constitutional Appears: No Acute Distress, Chronically Ill - Head Exam Head Exam: ATRAUMATIC, NORMOCEPHALIC - Eye Exam Eye Exam: EOMI - ENT Exam ENT Exam: Mucous Membranes Dry - Respiratory Exam Respiratory Exam: Clear to Ausculation Bilateral - Cardiovascular Exam Cardiovascular Exam: +S1, +S2 - GI/Abdominal Exam GI & Abdominal Exam: Soft, Normal Bowel Sounds. absent: Tenderness - Extremities Exam Additional comments: discoloration of b/l lower extremities necrotic toes right foot discolored toes left foot - Neurological Exam Neurological Exam: Alert, Awake - Psychiatric Exam Psychiatric exam: Normal Affect - Skin Skin Exam: Warm Assessment and Plan - Assessment and Plan (Free Text) Assessment: Hyperkalemia repeat potassium today 4.3, continue to monitor and give IVF Pt given calcium gluconate, D50, insulin IV, bicarb, kayexalate in ER holding lisinopril for side effect of hyperkalemia EKG- NSR @87bpm, does not demonstrate peaked T waves monitor on telemetry Acute on chronic renal insufficiency Creatinine this afternoon 1.2 Last creatinine in 01/2017 was 1.5, was 1.2 in 10/2016 patient clinically dry on examination patient given 1L saline bolus in ER, will continue IVF nephrology, Dr. Daniels, consulted- help appreciated - check renal US, urine microalbumin, creatinine, protein - acetylcysteine 20% 6ml x 4 doses to be given - mag oxide 400mg PO BID to be given x 5 days will hold invokamet and Januvia as patient has reduced renal function Peripheral Vascular disease Patient with history of angriography x 3 Continue home medications plavix 75mg daily, cilostazol 100mg BID, aspirin 81mg continue tramadol 50mg PO BID prn for pain Dr. Donovan consulted- help appreciated - recommend lower extremity arterial duplex Bilateral foot wounds right foot with dry gangrene second and third toes non-healing wounds to left foot s/p injury continue wound care patient started Augmentin on Sunday, prescribed by wound care center will start renal dose of zosyn HTN holding lisinopril, will continue to monitor and add medication if necessary Hx A-fib pt unsure of history but takes digoxin continue home medication digoxin 0.25mg daily, diltiazem 180 CD increased to BID by Dr. Donovan Diabetes holding invokamet and januvia due to renal insufficiency, will give sliding scale with accuchecks ACHS continue Lyrica 75mg TID for neuropathy diabetic diet patient reports last A1c in March was less than 7 BPH continue dutasteride 0.5mg daily (nonformulary, on finasteride here) Hyperlipidemia continue equivalent for lipitor 50mg HS Prophylactic measure heparin 5000u sc q12h All medical management as per Dr. Martinez
[2017-07-20 16:45] LABS: RBC URINE < 1 /hpf (0-3); URINE BILIRUBIN NEGATIVE (NEGATIVE); URINE BLOOD NEGATIVE (NEGATIVE); URINE COLOR Straw (YELLOW); URINE GLUCOSE (UA) 3+ mg/dL (Normal); URINE KETONE NEGATIVE (NEGATIVE); URINE LEUKOCYTE ESTERASE NEG Leu/uL (Negative); URINE PROTEIN NEGATIVE (NEGATIVE); URINE UROBILINOGEN NORMAL mg/dL (0.2-1.0); WBC URINE < 1 /hpf (0-5)
[2017-07-21] MEDS: Piperacill/Tazo 2.25gm in Dex 2.25 GM/50 ML BAG IVPB SCH ×3 (02:13→14:32)
--- NOTE | 2017-07-21 05:21 | CON ---
DATE: 07/20/2017 INITIAL NEPHROLOGY CONSULTATION CHIEF COMPLAINT: Bilateral foot wound. REASON FOR CONSULTATION: Acute kidney injury and hyperkalemia. While in room, the patient's family at bedside and EMR. HISTORY OF PRESENT ILLNESS: The patient is a 67-year-old male with a history of diabetes, diagnosed in 2013, although the patient did not have any prior followup and as per the family, the patient had undiagnosed diabetes for a longtime; also history of heavy ex-smoker, stopped 1 year ago; history of alcohol abuse in the past, stopped many years ago; history of peripheral vascular disease, bilateral chronic wound, also decreased appetite, history of atrial fibrillation, COPD, emphysema, hyperlipidemia, TIA in the past. He was scheduled for bilateral angiogram, but admitted because of hyperkalemia and YUE. The patient at this time has wound in the bilateral feet, feels in his usual health. Denied any nausea, vomiting, chest pain, palpitations. Denied any urinary complaints. He states he urinates quite a lot. He takes medications as Invokana, which makes him pee and urinates quite a bit. As per the family, he has limited oral intake, as he is not able to move much because of his wound infection in the feet. Otherwise, no recent contrast exposure. No NSAIDs use. As per the family, blood pressure usually on the low side at home. PAST MEDICAL HISTORY: Notable for anxiety, atrial fibrillation, COPD, diabetes, emphysema, hypertension, hyperlipidemia, peripheral vascular disease and TIA. PAST SURGICAL PROCEDURE: Include peripheral vascular disease intervention with angioplasty. SOCIAL HISTORY: Ex-smoker, ex-alcohol abuse, no drug abuse. FAMILY HISTORY: No history of dialysis. Brother has history of kidney disease, diabetes, he has . ALLERGIES: NO KNOWN DRUG ALLERGIES. MEDICATIONS: Home medications were also reviewed. REVIEW OF SYSTEMS: GENERAL: The patient is in his usual health. Denied any fever or chills, has lost approximately 20 pounds over the last few years. Has decreased appetite. NEUROLOGIC: Denied any headache, tingling, numbness, dizziness, weakness. EYES: Denied any watery or itchy eyes. ENT: Denied any ear pain, sore throat or congestion. CARDIOVASCULAR: Denied any chest pain, palpitation, dizziness or syncope. RESPIRATORY: Denied any shortness of breath, cough, phlegm, fever or chills. GASTROINTESTINAL: Denied any nausea, vomiting, constipation, diarrhea, change in bowel habit. GENITOURINARY: Denied any burning urination, no blood in the urine. Does report increased urine output with increased frequency. Denied any intermittency, hesitancy, denies any blood in the urine. MUSCULOSKELETAL: Denied any joint pain, joint swelling. SKIN: Denied any rash, ulceration except wound in the feet. LYMPHATICS: Denied any lymph node swelling. HEMATOLOGIC: Denied active bleeding. PSYCHIATRIC: Denied any anxiety, depression, hallucinations. PHYSICAL EXAMINATION: GENERAL: The patient appeared comfortable, cachectic with a BMI of 16, otherwise not in acute distress, pleasant and cooperative. VITAL SIGNS: Afebrile, temperature 100.8, blood pressure 159/79, saturation is well maintained. His weight is 102 pounds with BMI of 16. NEUROLOGIC: Thin, alert, awake, oriented x3. Moving all 4 extremities. Strength and sensation is intact. EYES: Pupils reactive. No icterus. ENT: No lesion, ulceration, thrush. Pharynx; normal tonsils. No lesions. NECK: Supple. No lymphadenopathy. No thrill. CARDIOPULMONARY: S1 and S2 normal. No murmur, rub or gallop. RESPIRATORY: Bilateral vesicular sounds clear, bilateral air entry, normal, symmetrical, no added sound. ABDOMEN: Soft, nontender, no organomegaly could be appreciated. EXTREMITIES: No edema. SKIN: No rash or ulceration. Bilateral feet are dressed and has a wound. PSYCHIATRIC: The patient is pleasant and cooperative. Judgement is appropriate. Insight is limited. LYMPHATICS: No lymphadenopathy in the neck. NEUROLOGIC: A and O x3, no focal deficits. Moving all extremities. Strength and sensation is intact. Follows command. GENITOURINARY: Kidney, bladder not palpable. MUSCULOSKELETAL: No joint tenderness or swelling at this time. WORKUP: White blood cell count is 9.2, hemoglobin 11.2, and platelet count is 426,000. Sodium 145; potassium 4.3, improved from 6.4; creatinine is 1.2, improved from 1.8 with eGFR more than 60 now. His glucose is 125, magnesium is 1.4, albumin is 3.9. ASSESSMENT: 1. Acute kidney injury, likely prerenal as caused by decreased oral intake, dehydration, also contributed by low blood pressure at home as per the family and medications such as Invokana, which can cause osmotic diuresis. 2. Hyperkalemia, also likely to be acute kidney injury, lisinopril and dehydration. 3. Possible chronic kidney disease, stage II/III. The patient's baseline creatinine 1.2 to 1.3 over the last few months. 4. History of mildly-complex cyst in the right kidney. 5. Peripheral vascular disease. 6. History of diabetes mellitus, ex-smoker, alcohol abuse, history of transient ischemic attack, chronic obstructive pulmonary disease and emphysema. RECOMMENDATIONS: Potassium has improved on the medical management. Continue to hold angiotensin-converting enzyme inhibitor at this time. Agree to hold Invokana at this time as low considering the risk for acute kidney injury and dehydration with the patient with limited oral intake. Blood pressure control is acceptable at this time, low potassium diet, diabetes control, low-salt diet as well, and we will check renal sonogram. We will do urine study as ordered, then discuss the risks for contrast and kidney injury with him. Normal saline 100 mL per hour, also recommend Mucomyst 1200 mg twice daily as ordered. The patient already on statin and avoid nonsteroidal antiinflammatory drugs and nephrotoxins. All questions were answered. Thank you for the consult. Please call if there are any questions. Discussed with the family at bedside who also helped in [place] interpretation. Barney Reddy MD
[2017-07-21] MEDS: (Novolin R) Insulin Human Regular 100 units/ml vial SC SCH ×2 (07:30→12:38)
--- NOTE | 2017-07-21 09:11 | US ---
Renal ultrasound History: Renal insufficiency. Renal cysts. Comparison: 04/06/2014 Technique: Real-time sonography was performed through the kidneys. Findings: Right kidney: 9.4 x 4.5 x 4.1 centimeters. Mild increased echogenicity of the renal cortex suggestive for medical renal disease. Upper pole hypoechoic cyst measuring 2.3 x 1.7 x 2.1 centimeters with associated peripheral punctate echogenic foci which may represent punctate calcification and or small nodular focus. No hydronephrosis. Left kidney: 9.6 x 5.3 x 4.0 centimeters. Mild increased echogenicity of the renal cortex suggestive for medical renal disease. Upper pole hypoechoic cyst measuring 8 x 7 x 9 millimeters with associated peripheral punctate echogenic foci which may represent punctate calcification and or small nodular focus. No hydronephrosis. Visualized aorta is preserved. Urinary bladder is somewhat underdistended but otherwise preserved. Impression: Increased echogenicity of the bilateral renal cortices suggestive for medical renal disease. Small upper pole hypoechoic bilateral renal cysts with peripheral punctate echogenic foci which may represent punctate calcifications and or small nodular foci. Clinical correlation.
[2017-07-21] MEDS: Magnesium Oxide 400 mg Tab UD PO SCH (10:13)
[2017-07-21] MEDS: diltiaZEM 180 mg/24 Hours CD Cap PO SCH (10:13)
[2017-07-21] MEDS: Digoxin 250 mcg (0.25 mg) Tab PO SCH (10:13)
[2017-07-21] MEDS: Acetylcysteine 20% Inhal Soln (4ml) PO SCH (10:16)
[2017-07-21 10:18] VITALS: PULSE 111
[2017-07-21] MEDS: Multiple Vitamins Tab PO SCH (10:18)
[2017-07-21] MEDS: Sodium Chloride 0.9% 1,000 ML IV SCH ×2 (10:30→14:33)
[2017-07-21] MEDS: Cilostazol 100 mg Tab UD PO SCH (11:01)
--- NOTE | 2017-07-21 14:05 | CP.PCM.PN ---
Subjective - Date & Time of Evaluation Date of Evaluation: 07/21/17 Time of Evaluation: 13:50 Objective - Vital Signs/Intake and Output Vital Signs (last 24 hours): Temp Pulse Resp BP Pulse Ox 97.8 F 111 H 20 143/78 99 07/21/17 08:00 07/21/17 08:42 07/21/17 08:00 07/21/17 08:00 07/21/17 08:00 Intake and Output: 07/21/17 07/21/17 06:59 18:59 Intake Total 2100 Output Total 400 Balance 1700 - Medications Medications: Current Medications Acetylcysteine (Acetylcysteine 20%) 6 ml PO BID [facility] Stop: 07/21/17 18:01 Last Admin: 07/21/17 10:16 Dose: 6 ml Aspirin (Ecotrin) 81 mg PO DAILY [facility] Last Admin: 07/21/17 10:14 Dose: 81 mg Cilostazol (Pletal) 100 mg PO BID [facility] Last Admin: 07/21/17 11:01 Dose: 100 mg Clopidogrel Bisulfate (Plavix) 75 mg PO DAILY [facility] Last Admin: 07/21/17 10:13 Dose: 75 mg Digoxin (Lanoxin) 0.25 mg PO DAILY [facility] Last Admin: 07/21/17 10:13 Dose: 0.25 mg Diltiazem HCl (Cardizem Cd) 180 mg PO BID [facility] Last Admin: 07/21/17 10:13 Dose: 180 mg Diltiazem HCl (Cardizem) 10 mg IVP STAT STA Stop: 07/21/17 14:04 Finasteride (Proscar) 5 mg PO DAILY [facility] Last Admin: 07/21/17 10:14 Dose: 5 mg Heparin Sodium (Porcine) (Heparin) 5,000 units SC Q12 [facility] Last Admin: 07/21/17 10:15 Dose: 5,000 units Sodium Chloride (Sodium Chloride 0.9%) 1,000 mls @ 100 mls/hr IV .Q10H [facility] Last Admin: 07/21/17 10:30 Dose: 100 mls/hr Piperacillin Sod/Tazobactam Sod (Zosyn 2.25 Gm Iv Premix) 2.25 gm in 50 mls @ 100 mls/hr IVPB Q6H [facility] Last Admin: 07/21/17 08:29 Dose: 100 mls/hr Insulin Human Regular (Novolin R) 0 unit SC ACHS ARUN PRN Reason: Protocol Last Admin: 07/21/17 12:38 Dose: 1 unit Magnesium Oxide (Mag-Ox) 400 mg PO BID [facility] Stop: 07/25/17 12:01 Last Admin: 07/21/17 10:13 Dose: 400 mg Multivitamins (Hexavitamin) 1 tab PO DAILY [facility] Last Admin: 07/21/17 10:18 Dose: 1 tab Pregabalin (Lyrica) 75 mg PO TID [facility] Last Admin: 07/21/17 10:13 Dose: 75 mg Rosuvastatin Calcium (Crestor) 20 mg PO HS [facility] Last Admin: 07/20/17 21:47 Dose: 20 mg Tramadol HCl (Ultram) 50 mg PO BID PRN PRN Reason: Pain, moderate (4-7) Last Admin: 07/19/17 20:43 Dose: 50 mg - Labs Labs: 07/20/17 08:01 07/20/17 13:48 Assessment and Plan (1) PAD (peripheral artery disease) Status: Acute (2) Acute renal failure Status: Acute (3) Hyperkalemia Status: Acute (4) Atrial fibrillation Status: Acute
[2017-07-21 15:36] VITALS: BP 112/56; RESP 18; TEMP 98; O2SAT 97
[2017-07-21 17:24] VITALS: PULSE 102
--- NOTE | 2017-07-23 10:18 | PN ---
DATE: CHIEF COMPLAINT: None at this time. The patient feels better. HISTORY OF PRESENT ILLNESS AND REVIEW OF SYSTEMS: Overnight, no event. The patient feels well at this time. No nausea, vomiting, chest pain, palpitation, shortness of breath, or cough. No fever or chills. PHYSICAL EXAMINATION: VITAL SIGNS: Afebrile, pulse is 102, blood pressure 112/56. LUNGS: Bilateral vesicular breath sounds clear. Bilateral air entry. Normal and symmetrical. ABDOMEN: Soft and nontender. No organomegaly. CARDIOVASCULAR: S1 is normal with mild sinus tachycardia. No rub, gallop, or rhythm. EXTREMITIES: No edema at this time. The patient's bilateral feet were drift. PSYCHIATRIC: The patient is pleasant and cooperative. Judgement is limited. Affect is flat. LABORATORY DATA: Workup showed white blood cell 9.2, hemoglobin 11.2, platelet count is 423. Sodium is 144, potassium 4.3, bicarbonate is 23, creatinine 1.2, glucose is 125. Urine shows 3+ glucose without any protein. No blood and had 120 mg albuminuria and close to 900 mg proteinuria on the quantification. He also had a renal imaging done, which showed bilateral increased echogenicity. Small upper pole hyperechoic bilateral renal cysts with peripheral punctate echogenic focus, which may represent punctate calcification and small nodular foci. ASSESSMENT: 1. Acute kidney injury likely prerenal, also contributed by dehydration, low blood pressure Invokana. 2. Hyperkalemia, has resolved. 3. Possible chronic kidney disease stage 2, has aggravated by proteinuria and echogenic kidneys. 4. History of kidney cyst. 5. Peripheral vascular disease. 6. Diabetes mellitus. 7. Ex-smoker, alcohol abuse. 8. History of transient ischemic attack. 9. Chronic obstructive pulmonary disease. 10. Emphysema. RECOMMENDATIONS: Renal function has improved. Hyperkalemia has resolved. Continue the IV fluid. Continue the supplementation. Also he is already on statin. Continue with IV fluid. Then continue diabetes control, low-salt diet. Hypertension is under good control at this time. Management for his PVD as per the primary team. All questions were answered. Discussed with the family at bedside who also has been [place] interpretation. Barney Reddy MD
--- NOTE | 2017-07-23 11:43 | VASCLAB ---
PROCEDURE: HISTORY: PAD COMPARISON: None available. TECHNIQUE: Grayscale and duplex Doppler evaluation of the bilateral common femoral, femoral, profunda femoral, popliteal, posterior tibial, anterior tibial and dorsalis pedis arteries was performed. Report prepared by CASEY Sanchez, RVT FINDINGS: RIGHT LOWER EXTREMITY: * Common Femoral Artery: Peak Systolic Velocity - 114: Doppler Waveform: Biphasic: Plaque description - Calcific * Profunda Femoral Artery: Peak Systolic Velocity - 142: Doppler Waveform: Biphasic.: Plaque description - Calcific * Femoral Artery o Proximal Segment: Peak Systolic Velocity - 131: Doppler Waveform: Biphasic: Plaque description - Calcific o Middle Segment: Peak Systolic Velocity - 516: Doppler Waveform: Biphasic: Plaque description - Calcific o Distal Segment: Peak Systolic Velocity - 97: Doppler Waveform: Biphasic: Plaque description - Calcific * Popliteal Artery o Proximal Segment: Peak Systolic Velocity - 80: Doppler Waveform: Biphasic: Plaque description - Calcific o Middle Segment: Peak Systolic Velocity - 70: Doppler Waveform: Biphasic: Plaque description - Calcific o Distal Segment: Peak Systolic Velocity - 78: Doppler Waveform: Biphasic: Plaque description - Calcific * Posterior Tibial Artery: Peak Systolic Velocity - 0: Doppler Waveform: Absent: Plaque description - Calcific * Anterior Tibial Artery: Peak Systolic Velocity - 0: Doppler Waveform: Absent: Plaque description - Calcific * Dorsalis Pedis Artery: Peak Systolic Velocity - : Doppler Waveform: : Plaque description - Calcific LEFT LOWER EXTREMITY: * Common Femoral Artery: Peak Systolic Velocity - 474: Doppler Waveform: Biphasic: Plaque description - Calcific * Profunda Femoral Artery: Peak Systolic Velocity - 231: Doppler Waveform: Biphasic: Plaque description - Calcific * Femoral Artery o Proximal Segment: Peak Systolic Velocity - 0: Doppler Waveform: Absent: Plaque description - Calcific o Middle Segment: Peak Systolic Velocity - 0: Doppler Waveform: Absent: Plaque description - Calcific o Distal Segment: Peak Systolic Velocity - 22: Doppler Waveform: Monophasic: Plaque description - Calcific * Popliteal Artery o Proximal Segment: Peak Systolic Velocity - 34: Doppler Waveform: Monophasic: Plaque description - Calcific o Middle Segment: Peak Systolic Velocity - 39: Doppler Waveform: Monophasic: Plaque description - Calcific o Distal Segment: Peak Systolic Velocity - 35: Doppler Waveform: Monophasic: Plaque description - Calcific * Posterior Tibial Artery: Peak Systolic Velocity - 0: Doppler Waveform: Absent: Plaque description - Calcific * Anterior Tibial Artery: Peak Systolic Velocity - 0: Doppler Waveform: Absent: Plaque description - Calcific * Dorsalis Pedis Artery: Peak Systolic Velocity - : Doppler Waveform: : Plaque description - OTHER FINDINGS: None. IMPRESSION: RIGHT: Possible occlusion of the right anterior tibial and mid posterior tibial arteries. Greater than 75% stenosis of the right mid superficial femoral artery. LEFT: Possible occlusion of the left proximal to mid superficial femoral, anterior tibial and posterior tibial arteries. Greater than 75% stenosis of the left common femoral artery. 50-75% stenosis of the left proximal profunda femoral artery.
== END 2017-07-21 17:26 | disposition home or self-care (01) | DRG 684 ==
LOC: C.ER 10:08 → C.9E 11:38 → C.5S 13:41
PROVIDERS: ADMIT Internal Medicine Pulmonary Disease; ATTEND Internal Medicine Pulmonary Disease
DX: N17.9 Acute kidney failure, unspecified (principal); E11.22 Type 2 diabetes mellitus with diabetic chronic kidney disease; E11.621 Type 2 diabetes mellitus with foot ulcer; I48.91 Unspecified atrial fibrillation; J44.9 Chronic obstructive pulmonary disease, unspecified; E86.0 Dehydration; E87.5 Hyperkalemia; I12.9 Hypertensive chronic kidney disease with stage 1 through stage 4 chronic kidney disease, or unspecified chronic kidney disease; L97.529 Non-pressure chronic ulcer of other part of left foot with unspecified severity; E78.5 Hyperlipidemia, unspecified; Z79.4 Long term (current) use of insulin; N40.0 Benign prostatic hyperplasia without lower urinary tract symptoms; S91.302A Unspecified open wound, left foot, initial encounter; Z53.9 Procedure and treatment not carried out, unspecified reason; N18.9 Chronic kidney disease, unspecified; Z87.891 Personal history of nicotine dependence; I25.10 Atherosclerotic heart disease of native coronary artery without angina pectoris

== ENCOUNTER 2017-07-26 08:30 | Day surgery (SDC) | payer MEDICARE, MEDICAID ==
[2016-11-19 22:13] VITALS: PULSE 102
[2017-07-16 15:14] VITALS: BMI 16.0
[2017-07-19 08:04] LABS: BASO % 0.4 % (0.0-2.0); EOS % 0.4 % (0.0-4.0); HEMATOCRIT 33.1 % (35.0-51.0); LYMPH # 1.8 K/uL (1.0-4.3); LYMPH % 15.4 % (20.0-40.0); MEAN CELL VOLUME 91.1 fL (80.0-94.0); MEAN CORPUSCULAR HGB CONC 32.9 g/dL (33.0-37.0); MEAN PLATELET VOLUME 7.2 fL (7.2-11.7); MONO # 1.1 K/uL (0.0-0.8); MONO % 9.4 % (0.0-10.0); RED CELL DISTRIBUTION WIDTH 16.7 % (11.5-14.5); WHITE BLOOD COUNT 11.7 K/uL (4.8-10.8)
[2017-07-19 08:07] LABS: CALCIUM 9.6 mg/dl (8.6-10.4)
[2017-07-19 08:17] LABS: POTASSIUM 6.4 mmol/L (3.6-5.2)
[2017-07-19 09:15] LABS: CALCIUM 9.8 mg/dl (8.6-10.4)
[2017-07-19 09:18] LABS: POTASSIUM 6.5 mmol/L (3.6-5.2)
--- NOTE | 2017-07-23 16:44 | CARD ---
APPROVED REPORT EKG Measurement Heart [id number] <Conclusion> Normal sinus rhythm Normal ECG
[2017-07-26] MEDS ORDERED: Midazolam 2 MG/2 ML VIAL ONE ×3 (10:18→12:43)
[2017-07-26] MEDS ORDERED: Iodixanol 320 MG/ML 100 ML BOTTLE IV ONE ×2 (10:18→13:03)
[2017-07-26] MEDS ORDERED: Iodixanol 320 MG/ML 200 ML BOTTLE IV ONE (10:18)
[2017-07-26] MEDS ORDERED: Sodium Chloride 0.9% 500 ML IV SCH (14:45)
[2017-07-26] MEDS ORDERED: Sodium Chloride 0.9% 500 ML IV ONE (16:12)
[2017-07-26 16:48] VITALS: O2SAT 100
[2017-07-26 18:10] VITALS: RESP 20
[2017-07-26 18:39] VITALS: BP 159/61; PULSE 99; TEMP 98.3
--- NOTE | 2017-08-08 09:39 | OP ---
PROCEDURE DATE: 07/26/2017 The patient is 67 years old. PROCEDURES PERFORMED: Retrograde access of right common femoral artery, selective catheter placement in the left popliteal artery, abdominal aortography with bilateral iliofemoral runoff, bilateral lower extremity angiography, selective catheter placement in the left popliteal artery, placement of distal embolic protection device in the left popliteal artery, angioplasty of left superficial femoral artery and stent in left superficial femoral artery. SURGEON: Sergio Donovan MD INDICATIONS: Gangrenous foot. HISTORY: As follows: The patient presents with ischemic changes of left foot. The patient has known peripheral vascular disease and has undergone bilateral endovascular intervention. He is referred for angiography and possible intervention. DESCRIPTION OF PROCEDURE: As follows: After obtaining informed consent, the patient was prepped and draped in usual sterile fashion. The right groin was anesthetized with 2% lidocaine solution. A 5-Swedish OmniFlush sheath was advanced into infrarenal abdominal aorta. Abdominal aortography was performed. The catheter was positioned at the iliac bifurcation. Bilateral iliofemoral runoff was performed. The catheter wire was directed to the contralateral lower extremity followed by sheath removal and selective angiography. FINDINGS: The inferior abdominal aorta is free of aneurysm or dissection. There is calcification in the bilateral iliac arteries. There is moderate stenosis of left external iliac as well as left common femoral artery. In the right leg, the right superior femoral artery has been previously stented. The stent is widely patent. There is severe disease at the outflow of the stent in the distal superficial femoral artery. This is a calcified vessel. Single vessel runoff is noted to the right foot. In the left leg, there is a 100% occlusion of the left superficial femoral artery. The vessel reconstitutes at the distal left superficial femoral, proximal left popliteal artery. There is 2-vessel runoff to left foot. INTERVENTION: The sheath is exchanged for a 6 x 45 Cook sheath. The sheath is selectively placed in the left common femoral artery via contralateral approach. A stiff-angled Glidewire was used to navigate across the chronic total occlusion left superficial femoral artery and was positioned distally. distal embolic protection device was deployed successfully. The patient underwent initial balloon angioplasty with a 250 normal pressure balloon. This is removed and ev3 EverFlex 5 x 150 self-expanding stent was positioned and deployed. A second 6 x 150 stent was positioned just proximal and deployed successfully. Final angiography revealed excellent opacification and brisk antegrade flow to the left foot. PLAN: The patient will continue with antiplatelet therapy with aspirin and Plavix. Risk factor modification has been discussed. Sergio Donovan MD
== END 2017-07-26 18:38 | disposition home or self-care (01) ==
LOC: C.CATHLAB 08:30
PROVIDERS: ATTEND Internal Medicine Cardiovascular Disease
DX: I70.263 Atherosclerosis of native arteries of extremities with gangrene, bilateral legs (principal)
CPT/HCPCS: 36247; 37226; 72HRC; 75625; 75716; 75774; 82948; 93005; 94770; C1725; C1760; C1766; C1769; C1876; C1884; C1887; C2617; J1644; J2250; J3010; J7040; Q9966; Q9967

== ENCOUNTER 2018-01-08 10:17 | Inpatient (IN) | payer MEDICARE, MEDICAID ==
[2018-01-08 10:18] VITALS: PULSE 108; BMI 16.0
--- NOTE | 2018-01-08 10:30 | C.PDOC ---
History Of Present Illness Patient is a 67 year old male, PMHx includes Hypertension, Diabetes, atrial fibrillation, PVD s/p stent, and LLE with progressive ischemia of the L foot, presents to the emergency department with complaints of worsening gangrene to left foot. Daughter at bedside reports patients visiting nurse was evaluating wound, and noted discharge from the area, prompting patients visit. No fever. Pt notes the he has pain to b/l feet which is chronic, he takes lyrica for it. Time Seen by Provider: 01/08/18 10:26 Chief Complaint (Nursing): Abnormal Skin Integrity History Per: Patient, Family History/Exam Limitations: no limitations Onset/Duration Of Symptoms: Days Current Symptoms Are (Timing): Still Present Past Medical History Reviewed: Historical Data, Nursing Documentation, Vital Signs Vital Signs: Last Vital Signs Temp 97.7 F 01/08/18 17:20 Pulse 77 01/08/18 17:20 Resp 20 01/08/18 17:20 BP 170/84 H 01/08/18 17:20 Pulse Ox 97 01/08/18 17:20 - Medical History PMH: Anxiety, Atrial Fibrillation, COPD, Diabetes, Emphysema, HTN, Hypercholesterolemia, Peripheral Edema (RT TOES GANGRENE), TIA (1995) - [facility] Procedures DILATION OF R FEM ART USING DRUG BLLN, PERC APPROACH (02/22/17) Family History: States: No Known Family Hx - Social History Hx Tobacco Use: Yes ("QUIT") Hx Alcohol Use: No Hx Substance Use: No - Immunization History Hx Tetanus Toxoid Vaccination: No Hx Influenza Vaccination: No Hx Pneumococcal Vaccination: No Review Of Systems Except As Marked, All Systems Reviewed And Found Negative. Constitutional: Negative for: Fever Respiratory: Negative for: Shortness of Breath Gastrointestinal: Negative for: Vomiting Musculoskeletal: Positive for: Foot Pain Skin: Negative for: Rash Neurological: Negative for: Headache, Dizziness Physical Exam - Physical Exam Appears: Non-toxic, No Acute Distress Skin: Warm, Dry Head: Atraumatic, Normacephalic Eye(s): bilateral: Normal Inspection, EOMI Oral Mucosa: Moist Neck: Normal ROM Chest: Symmetrical Cardiovascular: Rhythm Regular Respiratory: Normal Breath Sounds, No Accessory Muscle Use Extremity: Tenderness, Capillary Refill (<2 seconds), No Deformity, No Swelling , Other (skin darkening to all digits bilateral lower extremity. +Diffuse tenderness. Left foot 1cm open wound laterally. Right hallux, +discharge.) Pulses: Left Dorsalis Pedis: Absent, Right Dorsalis Pedis: Absent Neurological/Psych: Oriented x3, Normal Speech, Normal Sensation ED Course And Treatment - Laboratory Results Result Diagrams: 01/08/18 12:20 01/08/18 11:07 O2 Sat by Pulse Oximetry: 100 (RA) Pulse Ox Interpretation: Normal Progress Note: Patient seen and evaluated in ED by podiatry resident, Dr Tran, who dressed wound and discussed case with Dr. Khanna, requesting Zosyn, Vanco and admission. Case was discussed with Dr Staton who agrees to admit pt to his service. Disposition - Disposition Disposition: HOSPITALIZED Disposition Time: 16:00 Condition: STABLE - Clinical Impression Clinical Impression: PAD (peripheral artery disease), Wound, open, toe, Gangrene of foot - Scribe Statement The provider has reviewed the documentation as recorded by the Scribe (Huy Del Rio) All medical record entries made by the Scribe were at my direction and personally dictated by me. I have reviewed the chart and agree that the record accurately reflects my personal performance of the history, physical exam, medical decision making, and the department course for this patient. I have also personally directed, reviewed, and agree with the discharge instructions and disposition.
[2018-01-08 12:23] LABS: BASO % 0.6 % (0.0-2.0); EOS # 0.1 K/uL (0.0-0.7); EOS % 0.8 % (0.0-4.0); HEMOGLOBIN 12.7 g/dL (12.0-18.0); LYMPH # 1.4 K/uL (1.0-4.3); MEAN CORPUSCULAR HEMOGLOBIN 28.6 pg (27.0-31.0); MEAN CORPUSCULAR HGB CONC 33.3 g/dL (33.0-37.0); MEAN PLATELET VOLUME 7.7 fL (7.2-11.7); MONO # 0.8 K/uL (0.0-0.8); MONO % 10.9 % (0.0-10.0); NEUT # 5.3 K/uL (1.8-7.0); NEUT % 69.7 % (50.0-75.0); NRBC % 0.1 % (0.0-2.0); RBC 4.43 Mil/uL (4.40-5.90); RED CELL DISTRIBUTION WIDTH 17.1 % (11.5-14.5); WHITE BLOOD COUNT 7.7 K/uL (4.8-10.8)
[2018-01-08 12:24] LABS: ALB/GLOB RATIO 1.2 (1.0-2.1); ALBUMIN 4.1 g/dL (3.5-5.0); ALT/SGPT 54 U/L (21-72); AST/SGOT 49 U/L (17-59); BLOOD UREA NITROGEN 21 mg/dL (9-20); CALCIUM 9.1 mg/dl (8.6-10.4); GFR AFRICAN-AMERICAN > 60; GFR NON-AFRICAN AMERICAN > 60
[2018-01-08 12:25] LABS: MEAN CELL VOLUME 85.9 fL (80.0-94.0)
--- NOTE | 2018-01-08 12:41 | CP.PCM.CON ---
History of Present Illness - History of Present Illness History of Present Illness: 67 yo male patient with PMHx of Anxiety, Atrial Fibrillation, COPD, Diabetes, Emphysema, HTN, Hypercholesterolemia, Peripheral Edema was seen at bedside ED this afternoon concerning open wound to right foot. Patient is well known to Dr. Jey APONTE who has been following him as outpatient. Patient is being treated local wound care and his home nurse saw purulent discharge from Right hallux and recommended him to come to ED. Patient admits to pain to bilateral feet, but states it is chronic. No open wound noted from the left lower extremity. Patient denies of any N/V/F/C or SOB today Review of Systems - Constitutional Constitutional: As Per HPI - EENT Eyes: As Per HPI Past Patient History - Past Medical History & Family History Past Medical History?: Yes - Past Social History Smoking Status: Former Smoker - CARDIAC Hx Atrial Fibrillation: Yes Hx Hypercholesterolemia: Yes Hx Hypertension: Yes Hx Peripheral Edema: Yes (RT TOES GANGRENE) - PULMONARY Hx Chronic Obstructive Pulmonary Disease (COPD): Yes Hx Emphysema: Yes - NEUROLOGICAL Hx Transient Ischemic Attacks (TIA): Yes (1995) - HEENT Hx HEENT Problems: Yes (GLASSES) - ENDOCRINE/METABOLIC Hx Diabetes Mellitus Type 2: Yes - HEMATOLOGICAL/ONCOLOGICAL Hx Blood Disorders: No - INTEGUMENTARY Hx Dermatological Problems: Yes Other/Comment: Toenail fungus on right leg, dark color on toes 1, 2,3,4 similar to gangrene as stated by Daughter. TOES ARE BLACKENED DRY GANGRENE RT FOOT/ WOUND LEFT FOOT - MUSCULOSKELETAL/RHEUMATOLOGICAL Hx Musculoskeletal Disorders: Yes Hx Falls: Yes - GASTROINTESTINAL Hx Gastrointestinal Disorders: No - GENITOURINARY/GYNECOLOGICAL Hx Genitourinary Disorders: No - PSYCHIATRIC Hx Anxiety: Yes Hx Substance Use: No - SURGICAL HISTORY Hx Surgeries: Yes Hx Angiogram: Yes (SEVERAL) Hx Angioplasty: Yes (RT LEG WITH STENT) - ANESTHESIA Hx Anesthesia: Yes Hx Anesthesia Reactions: No Hx Malignant Hyperthermia: No Meds Allergies/Adverse Reactions: Allergies Allergy/AdvReac Type Severity Reaction Status Date / Time No Known Allergies Allergy Verified 07/19/17 10:21 Physical Exam - Constitutional Appears: Well, Non-toxic, No Acute Distress - Head Exam Head Exam: ATRAUMATIC - Extremities Exam Additional comments: Bilateral lower extremity exam DERM: Open wound noted to Distal-dorsal aspect of right hallux nail bed measuring 3cm x 2cm x 0.4cm with fibrotic base. Purulent drainage is noted from the ulceration. No probe to bone. Mild mal-odor is noted. Mild erythema is noted to bilateral feet. Pre-ulcerative lesion noted to right heel decubitus in nature. No open noted to Left lower extremity. Dry gangrenous changes to all digits. No mal-odor is noted. VASC: Non-palpable DP /PT noted bilaterally. Delayed PRINTER MAINTAINER noted to all digits NEURO: Gross sensation intact ORTHO: Pain on palpation to joints distal to ankle bilaterally, decreased ROM to all lower extremity joints due to guarding - Neurological Exam Neurological exam: Alert, Oriented x3 - Psychiatric Exam Psychiatric exam: Normal Affect, Normal Mood Results - Vital Signs Recent Vital Signs: Last Vital Signs Temp 98.2 F 01/08/18 10:20 Pulse 77 01/08/18 10:20 Resp 18 01/08/18 10:20 BP 195/78 H 01/08/18 10:20 Pulse Ox 100 01/08/18 10:30 Assessment & Plan - Assessment and Plan (Free Text) Assessment: 67 yo male patient presenting with chronic open ulceration to right foot, cellulitis bilateral feet Plan: Patient was seen, evaluated by bedside ED discussed in detail with attending Dr. Khanna, Dr. Sergio Donovan labs and vitals reviewed Patient will be admitted for 24 hours observational Continue IV Abx per ED Right lower extremity dressed with Betadine, DSD Right foot wound culture taken Podiatry will continue to follow in-house
[2018-01-08] MEDS ORDERED: Piperacillin/Tazobact 3.375 gm 100 ML IV STA (12:43)
[2018-01-08] MEDS ORDERED: Vancomycin 1 GM 1 GM/250 ML BAG IV SCH (12:45)
[2018-01-08] MEDS ORDERED: Piperacillin/Tazobact 3.375 gm 100 ML IVPB ONE (13:06)
[2018-01-08] MEDS: Vancomycin 1 gm/NS 200 ml 1 GM/200 ML BAG IVPB SCH (16:07)
[2018-01-08] MEDS: (Novolin R) Insulin Human Regular 100 units/ml vial SC SCH ×2 (17:00→21:59)
[2018-01-08] MEDS: Metoprolol Succinate 12.5 mg XL PO SCH (17:01)
[2018-01-08] MEDS: Piperacill/Tazo 3.375gm in Dex 3.375 GM/50 ML BAG IVPB SCH (20:21)
[2018-01-08] MEDS: Cilostazol 50 mg Tab UD PO SCH (20:21)
--- NOTE | 2018-01-08 23:53 | CP.PCM.HP ---
History of Present Illness - History of Present Illness History of Present Illness: CC: right big toe pain, redness and swelling HPI: 67 yo [place] male patient with PMHx of Anxiety, Atrial Fibrillation, COPD, Diabetes, Emphysema, HTN, Hypercholesterolemia, Peripheral Edema was seen at bedside ED this afternoon concerning open wound to right foot. he is using tips of hs foot toes progressively, Patient is well known to Dr. Jey APONTE who has been following him as outpatient. Patient is being treated local wound care and his home nurse saw purulent discharge from Right hallux and recommended him to come to ED. Patient admits to pain to bilateral feet, but states it is chronic. No open wound noted from the left lower extremity. Patient denies of any N/V/F/C or SOB today Present on Admission - Present on Admission Any Indicators Present on Admission: Yes Review of Systems - Review of Systems Systems not reviewed;Unavailable: Acuity of Condition - Constitutional Constitutional: Fatigue, Lethargy, Malaise - Cardiovascular Cardiovascular: absent: As Per HPI, Acrocyanosis, Chest Pain, Chest Pain at Rest , Chest Pain with Activity, Claudication, Diaphoresis, Dyspnea, Dyspnea on Exertion, Edema, Irregular Heart Rhythm, Pain Radiating to Arm/Neck/Jaw, Leg Edema, Leg Ulcers, Lightheadedness, Orthopnea, Palpitations, Paroxysmal Nocturnal Dyspnea, Pedal Edema, Radiating Pain, Rapid Heart Rate, Slow Heart Rate, Syncope, Other - Respiratory Respiratory: Wheezing. absent: As Per HPI, Cough, Dyspnea, Hemoptysis, Dyspnea on Exertion, Snoring, Stridor, Pain on Inspiration, Chest Congestion, Excessive Mucous Production, Change in Mucous Color, Pain with Coughing, Other - Integumentary Integumentary: Changing Lesions, Dry Skin, Non-Healing Lesions, Skin Ulcer, Swelling - Neurological Neurological: absent: As Per HPI, Abnormal Gait, Abnormal Hearing, Abnormal Movements, Abnormal Speech, Behavioral Changes, Burning Sensations, Confusion, Convulsions, Disequilibrium, Dizziness, Numbness, Focal Weakness, Frequent Falls , Headaches, Lack of Coordination, Loss of Vision, Memory Loss, Paresthesias, Radicular Pain, Restless Legs, Sensory Deficit, Syncope, Tingling, Tremor, Vertigo, Weakness, Other Visual Disturbances, Other - Psychiatric Psychiatric: absent: As Per HPI, Abnormal Sleep Pattern, Anhedonia, Anxiety, Auditory Hallucinations, Behavioral Changes, Change in Appetite, Change in Libido, Confusion, Depression, Difficulty Concentrating, Hallucinations, Homicidal Ideation, Hopelessness, Irritability, Memory Loss, Mood Swings, Panic Attacks, Paranoia, Suicidal Ideation, Visual Hallucinations, Tactile Hallucinations, Other Past Patient History - Past Medical History & Family History Past Medical History?: Yes - Past Social History Smoking Status: Former Smoker - CARDIAC Hx Atrial Fibrillation: Yes Hx Hypercholesterolemia: Yes Hx Hypertension: Yes Hx Peripheral Edema: Yes (RT TOES GANGRENE) - PULMONARY Hx Chronic Obstructive Pulmonary Disease (COPD): Yes Hx Emphysema: Yes - NEUROLOGICAL Hx Transient Ischemic Attacks (TIA): Yes (1995) - HEENT Hx HEENT Problems: Yes () - ENDOCRINE/METABOLIC Hx Diabetes Mellitus Type 2: Yes - HEMATOLOGICAL/ONCOLOGICAL Hx Blood Disorders: No - INTEGUMENTARY Hx Dermatological Problems: Yes Other/Comment: Toenail fungus on right leg, dark color on toes 1, 2,3,4 similar to gangrene as stated by Daughter. TOES ARE BLACKENED DRY GANGRENE RT FOOT/ WOUND LEFT FOOT - MUSCULOSKELETAL/RHEUMATOLOGICAL Hx Musculoskeletal Disorders: Yes Hx Falls: Yes - GASTROINTESTINAL Hx Gastrointestinal Disorders: No - GENITOURINARY/GYNECOLOGICAL Hx Genitourinary Disorders: No - PSYCHIATRIC Hx Anxiety: Yes Hx Substance Use: No - SURGICAL HISTORY Hx Surgeries: Yes Hx Angiogram: Yes (SEVERAL) Hx Angioplasty: Yes (RT LEG WITH STENT) - ANESTHESIA Hx Anesthesia: Yes Hx Anesthesia Reactions: No Hx Malignant Hyperthermia: No Meds Allergies/Adverse Reactions: Allergies Allergy/AdvReac Type Severity Reaction Status Date / Time No Known Allergies Allergy Verified 07/19/17 10:21 Physical Exam - Constitutional Appears: No Acute Distress - Head Exam Head Exam: ATRAUMATIC, NORMAL INSPECTION, NORMOCEPHALIC - Eye Exam Eye Exam: EOMI, Normal appearance, PERRL Pupil Exam: NORMAL ACCOMODATION, PERRL - Respiratory Exam Respiratory Exam: Clear to Auscultation Bilateral, NORMAL BREATHING PATTERN - Cardiovascular Exam Cardiovascular Exam: REGULAR RHYTHM - GI/Abdominal Exam GI & Abdominal Exam: Normal Bowel Sounds, Soft. absent: Tenderness - Extremities Exam Additional comments: b/l toe ulcer withdry, cold skin in feet, por hygene, scarring absent DP pulses right halux with discharge - Neurological Exam Neurological exam: Altered, Oriented x3 Results - Vital Signs Recent Vital Signs: Last Vital Signs Temp 97.7 F 01/08/18 17:20 Pulse 77 01/08/18 17:20 Resp 20 01/08/18 17:20 BP 170/84 H 01/08/18 17:20 Pulse Ox 100 01/08/18 17:41 - Labs Result Diagrams: 01/08/18 12:20 01/08/18 11:07 Labs: Laboratory Results - last 24 hr 01/08/18 01/08/18 01/08/18 11:07 12:20 18:05 WBC 7.7 RBC 4.43 Hgb 12.7 Hct 38.1 MCV 85.9 D MCH 28.6 MCHC 33.3 RDW 17.1 H Plt Count 370 MPV 7.7 Neut % (Auto) 69.7 Lymph % (Auto) 18.0 L Overton % (Auto) 10.9 H Eos % (Auto) 0.8 Baso % (Auto) 0.6 Neut # (Auto) 5.3 Lymph # (Auto) 1.4 Overton # (Auto) 0.8 Eos # (Auto) 0.1 Baso # (Auto) 0.0 Sodium 143 Potassium 4.4 Chloride 104 Carbon Dioxide 23 Anion Gap 20 BUN 21 H Creatinine 1.2 Est GFR ( Amer) > 60 Est GFR (Non-Af Amer) > 60 POC Glucose (mg/dL) 84 Random Glucose 91 Calcium 9.1 Total Bilirubin 0.3 AST 49 ALT 54 Alkaline Phosphatase 120 Total Protein 7.5 Albumin 4.1 Globulin 3.4 Albumin/Globulin Ratio 1.2 01/08/18 21:14 WBC RBC Hgb Hct MCV MCH MCHC RDW Plt Count MPV Neut % (Auto) Lymph % (Auto) Overton % (Auto) Eos % (Auto) Baso % (Auto) Neut # (Auto) Lymph # (Auto) Overton # (Auto) Eos # (Auto) Baso # (Auto) Sodium Potassium Chloride Carbon Dioxide Anion Gap BUN Creatinine Est GFR ( Amer) Est GFR (Non-Af Amer) POC Glucose (mg/dL) 111 H Random Glucose Calcium Total Bilirubin AST ALT Alkaline Phosphatase Total Protein Albumin Globulin Albumin/Globulin Ratio Assessment & Plan (1) Contact with and (suspected) exposure to environmental tobacco smoke (acute ) (chronic) Status: Acute (2) Gangrene of foot Status: Acute (3) PAD (peripheral artery disease) Status: Acute (4) Wound, open, toe Status: Acute
[2018-01-09] MEDS: Piperacill/Tazo 3.375gm in Dex 3.375 GM/50 ML BAG IVPB SCH ×4 (00:23→18:20)
[2018-01-09] MEDS: (Novolin R) Insulin Human Regular 100 units/ml vial SC SCH ×4 (08:11→22:49)
[2018-01-09] MEDS ORDERED: GlipiZIDE 5 mg SR Tab PO SCH (10:00)
[2018-01-09] MEDS: Enoxaparin 40 mg Syringe SC SCH (10:32)
[2018-01-09] MEDS: Cilostazol 50 mg Tab UD PO SCH ×2 (10:32→18:19)
[2018-01-09] MEDS: Metoprolol Succinate 12.5 mg XL PO SCH ×2 (10:32→18:19)
--- NOTE | 2018-01-09 11:20 | VASCLAB ---
STUDY DESCRIPTION: HISTORY: Peripheral Artery Disease, Diabetic with peripheral circulatory disease. PRIORS: None. TECHNIQUE: Pulse volume recording waveforms and segmental pressures of bilateral lower extremities at multiple levels were obtained. Ankle Brachial Indices (ABIs) were calculated. Report prepared by CASEY Sanchez, RVT RIGHT LOWER EXTREMITY: * Brachial artery: Pressure - 184 mmHg. * High thigh: Pressure - mmHg: Ratio - : PVR waveform - Reduced * Low thigh: Pressure - mmHg: Ratio - PVR waveform: Reduced * Calf: Pressure - 220 mmHg: Ratio - n/c PVR waveform: Reduced * Posterior tibial Artery: Non audible pulse PVR waveform: absent * Dorsalis pedis Artery: Pressure - 69 mmHg: Ratio - 0.37 PVR waveform: absent * Ankle brachial index (VICK): 0.37 LEFT LOWER EXTREMITY: * Brachial artery: Pressure - 185 mmHg. * High thigh: Pressure - mmHg: Ratio - : PVR waveform - Reduced * Low thigh: Pressure - mmHg: Ratio - PVR waveform: Reduced * Calf: Pressure - 220 mmHg: Ratio - n/c PVR waveform: Reduced * Posterior tibial Artery: Pressure - 220 mmHg: Ratio - n/c PVR waveform: Reduced * Dorsalis pedis Artery: Pressure - 126 mmHg: Ratio - 0.68 PVR waveform: Reduced * Ankle brachial index (VICK): 0.68 OTHER FINDINGS: IMPRESSION: Right: Severely reduced ankle brachial index of 0.37. Non audible pulse of the right posterior tibial artery. Absent waveforms at the ankle level. VICK and arterial (PVR) waveforms are suggestive of critical limb ischemia. Left: Reduced ankle brachial index of 0.68. Reduced waveforms at the ankle level. VICK and arterial (PVR) waveforms are suggestive of mild to moderate arterial insufficiency, from iliac artery level to distal small arteries.
--- NOTE | 2018-01-09 13:27 | CP.PCM.PN ---
Subjective - Date & Time of Evaluation Date of Evaluation: 01/09/18 Time of Evaluation: 11:27 - Subjective Subjective: Podiatry note for Dr. Khanna 67 yo male patient was seen at bedside this afternoon with Dr. Khanna concerning open wound to right foot. Patient is resting in bed AAOx3, NAD. Dressin gto right lower extremity c/d/i. Patient denies of any N/V/F/C or SOB today Objective - Vital Signs/Intake and Output Vital Signs (last 24 hours): Temp Pulse Resp BP Pulse Ox 98.3 F 75 18 155/74 H 99 01/09/18 07:05 01/09/18 07:05 01/09/18 07:05 01/09/18 07:05 01/09/18 07:05 Intake and Output: 01/09/18 01/09/18 06:59 18:59 Output Total 300 Balance -300 - Medications Medications: Current Medications Acetaminophen (Tylenol 325mg Tab) 650 mg PO Q6 PRN PRN Reason: Pain, moderate (4-7) Last Admin: 01/08/18 17:10 Dose: 650 mg Aspirin (Ecotrin) 81 mg PO DAILY [facility] Last Admin: 01/09/18 10:31 Dose: 81 mg Cilostazol (Pletal) 50 mg PO BID [facility] Last Admin: 01/09/18 10:32 Dose: 50 mg Clopidogrel Bisulfate (Plavix) 75 mg PO DAILY [facility] Last Admin: 01/09/18 10:31 Dose: 75 mg Enoxaparin Sodium (Lovenox) 40 mg SC DAILY [facility] Last Admin: 01/09/18 10:32 Dose: 40 mg Finasteride (Proscar) 5 mg PO DAILY [facility] Last Admin: 01/09/18 10:42 Dose: 5 mg Glipizide (Glucotrol Xl) 5 mg PO DAILY [facility] Last Admin: 01/09/18 10:31 Dose: 5 mg Vancomycin/Sodium Chloride (Vancomycin 1 Gm/Ns 200 Ml) 1 gm in 200 mls @ 166.6 mls/hr IVPB Q24H [facility] PRN Reason: Protocol Stop: 01/13/18 15:31 Last Admin: 01/08/18 16:07 Dose: 166.6 mls/hr Piperacillin Sod/Tazobactam Sod (Zosyn 3.375 Gm Iv Premix) 3.375 gm in 50 mls @ 100 mls/hr IVPB Q6H [facility] PRN Reason: Protocol Last Admin: 01/09/18 13:14 Dose: 100 mls/hr Insulin Human Regular (Novolin R) 0 unit SC ACHS [facility] PRN Reason: Protocol Last Admin: 01/09/18 11:40 Dose: Not Given Losartan Potassium (Cozaar) 50 mg PO DAILY [facility] Metoprolol Succinate (Toprol Xl) 12.5 mg PO BID [facility] Last Admin: 01/09/18 10:32 Dose: 12.5 mg Pregabalin (Lyrica) 75 mg PO TID [facility] Last Admin: 01/09/18 13:14 Dose: 75 mg Rosuvastatin Calcium (Crestor) 20 mg PO HS [facility] Sitagliptin Phosphate (Januvia) 50 mg PO DAILY [facility] Last Admin: 01/09/18 10:31 Dose: 50 mg - Labs Labs: 01/08/18 12:20 01/08/18 11:07 - Constitutional Appears: Well, Non-toxic, No Acute Distress - Head Exam Head Exam: ATRAUMATIC - Extremities Exam Additional comments: Bilateral lower extremity exam DERM: Open wound noted to Distal-dorsal aspect of right hallux nail bed measuring 3cm x 2cm x 0.4cm with fibrotic base. No drainage is noted from the ulceration. No pus, No probe to bone. No mal-odor is noted. Pre-ulcerative lesion noted to right heel decubitus in nature. No open noted to Left lower extremity. Dry gangrenous changes to all digits. No mal-odor is noted. VASC: Non-palpable DP /PT noted bilaterally. Delayed MERCURY WASHER noted to all digits NEURO: Gross sensation intact ORTHO: Pain on palpation to joints distal to ankle bilaterally, decreased ROM to all lower extremity joints due to guarding - Neurological Exam Neurological Exam: Alert, Awake, Oriented x3 - Psychiatric Exam Psychiatric exam: Normal Affect, Normal Mood - Skin Skin Exam: Normal Color Assessment and Plan - Assessment and Plan (Free Text) Assessment: 67 yo male patient presenting with chronic open ulceration to right foot, resolving cellulitis bilateral feet Plan: Patient was seen, evaluated by bedside ED Rounded with attending Dr. Khanna labs and vitals reviewed; afebrile Weight bearing as tolerated Right lower extremity dressed with Betadine, DSD Right foot wound culture Prelim; Gram (+) Cocci This patient is stable from podiatry standpoint per Dr. Khanna
[2018-01-09] MEDS: Vancomycin 1 gm/NS 200 ml 1 GM/200 ML BAG IVPB SCH (14:32)
--- NOTE | 2018-01-09 23:20 | CP.PCM.PN ---
Subjective - Date & Time of Evaluation Date of Evaluation: 01/09/18 Time of Evaluation: 17:45 - Subjective Subjective: pt seen and examined at bedside. Objective - Vital Signs/Intake and Output Vital Signs (last 24 hours): Temp Pulse Resp BP Pulse Ox 97.9 F 80 18 129/72 95 01/09/18 16:42 01/09/18 16:42 01/09/18 16:45 01/09/18 16:42 01/09/18 16:42 Intake and Output: 01/09/18 01/10/18 18:59 06:59 Intake Total 410 Output Total 500 Balance -90 - Medications Medications: Current Medications Acetaminophen (Tylenol 325mg Tab) 650 mg PO Q6 PRN PRN Reason: Pain, moderate (4-7) Last Admin: 01/08/18 17:10 Dose: 650 mg Aspirin (Ecotrin) 81 mg PO DAILY [facility] Last Admin: 01/09/18 10:31 Dose: 81 mg Cilostazol (Pletal) 50 mg PO BID [facility] Last Admin: 01/09/18 18:19 Dose: 50 mg Clopidogrel Bisulfate (Plavix) 75 mg PO DAILY [facility] Last Admin: 01/09/18 10:31 Dose: 75 mg Enoxaparin Sodium (Lovenox) 40 mg SC DAILY [facility] Last Admin: 01/09/18 10:32 Dose: 40 mg Finasteride (Proscar) 5 mg PO DAILY [facility] Last Admin: 01/09/18 10:42 Dose: 5 mg Vancomycin/Sodium Chloride (Vancomycin 1 Gm/Ns 200 Ml) 1 gm in 200 mls @ 166.6 mls/hr IVPB Q24H [facility] PRN Reason: Protocol Stop: 01/13/18 15:31 Last Admin: 01/09/18 14:32 Dose: 166.6 mls/hr Piperacillin Sod/Tazobactam Sod (Zosyn 3.375 Gm Iv Premix) 3.375 gm in 50 mls @ 100 mls/hr IVPB Q6H [facility] PRN Reason: Protocol Last Admin: 01/09/18 18:20 Dose: 100 mls/hr Insulin Human Regular (Novolin R) 0 unit SC ACHS [facility] PRN Reason: Protocol Last Admin: 01/09/18 22:49 Dose: Not Given Losartan Potassium (Cozaar) 50 mg PO DAILY [facility] Metoprolol Succinate (Toprol Xl) 12.5 mg PO BID [facility] Last Admin: 01/09/18 18:19 Dose: 12.5 mg Pregabalin (Lyrica) 75 mg PO TID [facility] Last Admin: 01/09/18 18:19 Dose: 75 mg Rosuvastatin Calcium (Crestor) 20 mg PO HS [facility] Last Admin: 01/09/18 22:48 Dose: 20 mg Sitagliptin Phosphate (Januvia) 50 mg PO DAILY [facility] Last Admin: 01/09/18 10:31 Dose: 50 mg - Labs Labs: 01/08/18 12:20 01/08/18 11:07
[2018-01-10] MEDS: Piperacill/Tazo 3.375gm in Dex 3.375 GM/50 ML BAG IVPB SCH ×3 (00:33→13:20)
[2018-01-10 00:45] VITALS: RESP 20
[2018-01-10] MEDS: (Novolin R) Insulin Human Regular 100 units/ml vial SC SCH ×2 (07:20→12:15)
[2018-01-10 08:38] VITALS: BP 148/67; PULSE 79; TEMP 97.6; O2SAT 98
[2018-01-10] MEDS: Metoprolol Succinate 12.5 mg XL PO SCH (10:07)
[2018-01-10] MEDS: Enoxaparin 40 mg Syringe SC SCH (10:07)
[2018-01-10] MEDS: Cilostazol 50 mg Tab UD PO SCH (10:07)
[2018-01-10 11:27] LABS: BASO # 0.1 K/uL (0.0-0.2); BASO % 0.5 % (0.0-2.0); EOS # 0.1 K/uL (0.0-0.7); EOS % 0.5 % (0.0-4.0); LYMPH # 1.4 K/uL (1.0-4.3); LYMPH % 14.2 % (20.0-40.0); MEAN CELL VOLUME 86.1 fL (80.0-94.0); MEAN CORPUSCULAR HEMOGLOBIN 28.7 pg (27.0-31.0); MEAN CORPUSCULAR HGB CONC 33.3 g/dL (33.0-37.0); MEAN PLATELET VOLUME 7.6 fL (7.2-11.7); MONO # 1.1 K/uL (0.0-0.8); MONO % 11.8 % (0.0-10.0); NEUT # 7.1 K/uL (1.8-7.0); RBC 4.2 Mil/uL (4.40-5.90); RED CELL DISTRIBUTION WIDTH 16.7 % (11.5-14.5); WHITE BLOOD COUNT 9.8 K/uL (4.8-10.8)
[2018-01-10 11:43] LABS: ALBUMIN 3.5 g/dL (3.5-5.0); ALT/SGPT 58 U/L (21-72); AST/SGOT 42 U/L (17-59); BLOOD UREA NITROGEN 21 mg/dL (9-20); CALCIUM 8.3 mg/dl (8.6-10.4); GFR AFRICAN-AMERICAN > 60; GFR NON-AFRICAN AMERICAN 50
--- NOTE | 2018-01-10 12:34 | CP.PCM.PN ---
Subjective - Date & Time of Evaluation Date of Evaluation: 01/10/18 Time of Evaluation: 12:33 - Subjective Subjective: PATIENT WAS ADMITTED FOR PERFORATED INTRA ABD DENIES ANY CHEST PAIN/ ABD PAIN/ SOB NO SIGN OF DISTRESS NOTED Objective - Vital Signs/Intake and Output Vital Signs (last 24 hours): Temp Pulse Resp BP Pulse Ox 97.6 F 79 20 148/67 98 01/10/18 07:35 01/10/18 07:35 01/10/18 07:35 01/10/18 07:35 01/10/18 07:35 Intake and Output: 01/10/18 01/10/18 06:59 18:59 Intake Total 290 Output Total 175 Balance 115 - Medications Medications: Current Medications Acetaminophen (Tylenol 325mg Tab) 650 mg PO Q6 PRN PRN Reason: Pain, moderate (4-7) Last Admin: 01/08/18 17:10 Dose: 650 mg Aspirin (Ecotrin) 81 mg PO DAILY [facility] Last Admin: 01/10/18 10:07 Dose: 81 mg Cilostazol (Pletal) 50 mg PO BID [facility] Last Admin: 01/10/18 10:07 Dose: 50 mg Clopidogrel Bisulfate (Plavix) 75 mg PO DAILY [facility] Last Admin: 01/10/18 10:07 Dose: 75 mg Enoxaparin Sodium (Lovenox) 40 mg SC DAILY [facility] Last Admin: 01/10/18 10:07 Dose: 40 mg Finasteride (Proscar) 5 mg PO DAILY [facility] Last Admin: 01/10/18 10:07 Dose: 5 mg Vancomycin/Sodium Chloride (Vancomycin 1 Gm/Ns 200 Ml) 1 gm in 200 mls @ 166.6 mls/hr IVPB Q24H [facility] PRN Reason: Protocol Stop: 01/13/18 15:31 Last Admin: 01/09/18 14:32 Dose: 166.6 mls/hr Piperacillin Sod/Tazobactam Sod (Zosyn 3.375 Gm Iv Premix) 3.375 gm in 50 mls @ 100 mls/hr IVPB Q6H [facility] PRN Reason: Protocol Last Admin: 01/10/18 07:38 Dose: 100 mls/hr Insulin Human Regular (Novolin R) 0 unit SC ACHS [facility] PRN Reason: Protocol Last Admin: 01/10/18 07:20 Dose: Not Given Losartan Potassium (Cozaar) 50 mg PO DAILY [facility] Last Admin: 01/10/18 10:07 Dose: 50 mg Metoprolol Succinate (Toprol Xl) 12.5 mg PO BID [facility] Last Admin: 01/10/18 10:07 Dose: 12.5 mg Pregabalin (Lyrica) 75 mg PO TID [facility] Last Admin: 01/10/18 10:07 Dose: 75 mg Rosuvastatin Calcium (Crestor) 20 mg PO HS [facility] Last Admin: 01/09/18 22:48 Dose: 20 mg Sitagliptin Phosphate (Januvia) 50 mg PO DAILY [facility] Last Admin: 01/10/18 10:07 Dose: 50 mg - Labs Labs: 01/10/18 11:17 01/10/18 11:17 Assessment and Plan - Assessment and Plan (Free Text) Assessment: PATIENT SEEN AND EXAMINED AT THE BEDSIDE LUNG SOUND CLEAR ABDOMINAL SOFT NON DISTENDED / POSITIVE BOWEL SOUND ALL QUADRANT DISCUSS WITH SURGICAL TEAM WHO CLEAR PATIENT FOR DC CT SHOW MICROPERFORATED ABD AND NO SRUGICAL INTERVENTION AT THIS TIME DISCUSS WITH DR BOOTH WHO CLEAR PATIENT FOR DC FOLLOW UP WITH DR BRUCE IN ONE WEEK AT HIS OFFICE ---CALL FOR APPOINTMENT FOLLOW WITH DR CHILDRESS IN 1-2 WEEKS AT HIS OFFICE---CALL FOR APOINTMENT CONTINUE ALL YOUR HOME MEDICATION ORDER WOUND CARE ORDER CLEAN WITH BETADINE AND DRESSING DRY DAILY NO ABX PER DR CHILDRESS F/U WITH [facility] [employer] TOLERATED CALL DR CHILDRESS OR GO TO THE EMERGENCY ROOM IF SYMPTOMS RETURN OR WORSENING DISCUSS WITH PATIENT WHO AGREE AND VERBALIZED UNDERSTANDING
--- NOTE | 2018-01-10 12:53 | CP.PCM.PN ---
Subjective - Date & Time of Evaluation Date of Evaluation: 01/10/18 Time of Evaluation: 11:51 - Subjective Subjective: Podiatry note for Dr. Khanna 67 yo male patient was seen at bedside this afternoon with Dr. Khanna concerning open wound to right foot. Patient is resting in bed AAOx3, NAD. Dressing to right lower extremity c/d/i. Patient denies of any N/V/F/C or SOB today Patient is stable from podiatry standpoint Objective - Vital Signs/Intake and Output Vital Signs (last 24 hours): Temp Pulse Resp BP Pulse Ox 97.6 F 79 20 148/67 98 01/10/18 07:35 01/10/18 07:35 01/10/18 07:35 01/10/18 07:35 01/10/18 07:35 Intake and Output: 01/10/18 01/10/18 06:59 18:59 Intake Total 290 Output Total 175 Balance 115 - Medications Medications: Current Medications Acetaminophen (Tylenol 325mg Tab) 650 mg PO Q6 PRN PRN Reason: Pain, moderate (4-7) Last Admin: 01/08/18 17:10 Dose: 650 mg Aspirin (Ecotrin) 81 mg PO DAILY [facility] Last Admin: 01/10/18 10:07 Dose: 81 mg Cilostazol (Pletal) 50 mg PO BID [facility] Last Admin: 01/10/18 10:07 Dose: 50 mg Clopidogrel Bisulfate (Plavix) 75 mg PO DAILY [facility] Last Admin: 01/10/18 10:07 Dose: 75 mg Enoxaparin Sodium (Lovenox) 40 mg SC DAILY [facility] Last Admin: 01/10/18 10:07 Dose: 40 mg Finasteride (Proscar) 5 mg PO DAILY [facility] Last Admin: 01/10/18 10:07 Dose: 5 mg Vancomycin/Sodium Chloride (Vancomycin 1 Gm/Ns 200 Ml) 1 gm in 200 mls @ 166.6 mls/hr IVPB Q24H ARUN PRN Reason: Protocol Stop: 01/13/18 15:31 Last Admin: 01/09/18 14:32 Dose: 166.6 mls/hr Piperacillin Sod/Tazobactam Sod (Zosyn 3.375 Gm Iv Premix) 3.375 gm in 50 mls @ 100 mls/hr IVPB Q6H ARUN PRN Reason: Protocol Last Admin: 01/10/18 07:38 Dose: 100 mls/hr Insulin Human Regular (Novolin R) 0 unit SC ACHS [facility] PRN Reason: Protocol Last Admin: 01/10/18 12:15 Dose: 2 unit Losartan Potassium (Cozaar) 50 mg PO DAILY [facility] Last Admin: 01/10/18 10:07 Dose: 50 mg Metoprolol Succinate (Toprol Xl) 12.5 mg PO BID [facility] Last Admin: 01/10/18 10:07 Dose: 12.5 mg Pregabalin (Lyrica) 75 mg PO TID [facility] Last Admin: 01/10/18 10:07 Dose: 75 mg Rosuvastatin Calcium (Crestor) 20 mg PO HS [facility] Last Admin: 01/09/18 22:48 Dose: 20 mg Sitagliptin Phosphate (Januvia) 50 mg PO DAILY [facility] Last Admin: 01/10/18 10:07 Dose: 50 mg - Labs Labs: 01/10/18 11:17 01/10/18 11:17 - Constitutional Appears: Well, Non-toxic, No Acute Distress - Head Exam Head Exam: ATRAUMATIC - Extremities Exam Additional comments: Bilateral lower extremity exam DERM: Open wound noted to Distal-dorsal aspect of right hallux nail bed measuring 3cm x 2cm x 0.4cm with fibrotic base. No drainage is noted from the ulceration. No pus, No probe to bone. No mal-odor is noted. Pre-ulcerative lesion noted to right heel decubitus in nature. No open noted to Left lower extremity. Dry gangrenous changes to all digits. No mal-odor is noted. VASC: Non-palpable DP /PT noted bilaterally. Delayed [employer] noted to all digits NEURO: Gross sensation intact ORTHO: Pain on palpation to joints distal to ankle bilaterally, decreased ROM to all lower extremity joints due to guarding - Neurological Exam Neurological Exam: Alert, Awake, Oriented x3 - Psychiatric Exam Psychiatric exam: Normal Affect, Normal Mood Assessment and Plan - Assessment and Plan (Free Text) Assessment: 67 yo male patient presenting with chronic open ulceration to right foot Plan: Patient was seen, evaluated by bedside ED Rounded with attending Dr. Khanna labs and vitals reviewed; afebrile Weight bearing as tolerated Right lower extremity dressed with Betadine, DSD This patient is stable from podiatry standpoint per Dr. Khanna
--- NOTE | 2018-01-10 23:21 | CP.PCM.DIS ---
Provider - Provider Date of Admission: 01/09/18 11:15 Attending physician: Rolly Staton MD Time Spent in preparation of Discharge (in minutes): 54 Diagnosis - Discharge Diagnosis (1) Contact with and (suspected) exposure to environmental tobacco smoke (acute ) (chronic) Status: Acute (2) Gangrene of foot Status: Acute (3) PAD (peripheral artery disease) Status: Acute (4) Wound, open, toe Status: Acute Hospital Course - Lab Results Lab Results: Micro Results 01/08/18 12:00 Blood Blood Culture - Preliminary NO GROWTH AFTER 48 HOURS 01/08/18 11:30 Blood Blood Culture - Preliminary NO GROWTH AFTER 48 HOURS 01/08/18 11:48 Foot - Left Gram Stain - Final 01/08/18 11:48 Foot - Left Wound Culture - Preliminary No growth. 01/08/18 Unknown Foot - Right Gram Stain - Final 01/08/18 Unknown Foot - Right Wound Culture - Final Staphylococcus Lugdunensis Most Recent Lab Values WBC 9.8 K/uL (4.8-10.8) 01/10/18 11:17 RBC 4.20 Mil/uL (4.40-5.90) L 01/10/18 11:17 Hgb 12.0 g/dL (12.0-18.0) 01/10/18 11:17 Hct 36.2 % (35.0-51.0) 01/10/18 11:17 MCV 86.1 fL (80.0-94.0) 01/10/18 11:17 MCH 28.7 pg (27.0-31.0) 01/10/18 11:17 MCHC 33.3 g/dL (33.0-37.0) 01/10/18 11:17 RDW 16.7 % (11.5-14.5) H 01/10/18 11:17 Plt Count 347 K/uL (130-400) 01/10/18 11:17 MPV 7.6 fL (7.2-11.7) 01/10/18 11:17 Neut % (Auto) 73.0 % (50.0-75.0) 01/10/18 11:17 Lymph % (Auto) 14.2 % (20.0-40.0) L 01/10/18 11:17 Taylor % (Auto) 11.8 % (0.0-10.0) H 01/10/18 11:17 Eos % (Auto) 0.5 % (0.0-4.0) 01/10/18 11:17 Baso % (Auto) 0.5 % (0.0-2.0) 01/10/18 11:17 Neut # (Auto) 7.1 K/uL (1.8-7.0) H 01/10/18 11:17 Lymph # (Auto) 1.4 K/uL (1.0-4.3) 01/10/18 11:17 Taylor # (Auto) 1.1 K/uL (0.0-0.8) H 01/10/18 11:17 Eos # (Auto) 0.1 K/uL (0.0-0.7) 01/10/18 11:17 Baso # (Auto) 0.1 K/uL (0.0-0.2) 01/10/18 11:17 Sodium 142 mmol/L (132-148) 01/10/18 11:17 Potassium 3.9 mmol/L (3.6-5.2) 01/10/18 11:17 Chloride 105 mmol/L (98-107) 01/10/18 11:17 Carbon Dioxide 25 mmol/L (22-30) 01/10/18 11:17 Anion Gap 16 (10-20) 01/10/18 11:17 BUN 21 mg/dL (9-20) H 01/10/18 11:17 Creatinine 1.4 mg/dL (0.8-1.5) 01/10/18 11:17 Est GFR ( Amer) > 60 01/10/18 11:17 Est GFR (Non-Af Amer) 50 01/10/18 11:17 POC Glucose (mg/dL) 211 mg/dL (65-110) H 01/10/18 11:18 Random Glucose 180 mg/dL (75-110) H 01/10/18 11:17 Calcium 8.3 mg/dl (8.6-10.4) L 01/10/18 11:17 Total Bilirubin 0.4 mg/dL (0.2-1.3) 01/10/18 11:17 AST 42 U/L (17-59) 01/10/18 11:17 ALT 58 U/L (21-72) 01/10/18 11:17 Alkaline Phosphatase 102 U/L (38-126) 01/10/18 11:17 Total Protein 7.1 g/dL (6.3-8.3) 01/10/18 11:17 Albumin 3.5 g/dL (3.5-5.0) 01/10/18 11:17 Globulin 3.6 gm/dL (2.2-3.9) 01/10/18 11:17 Albumin/Globulin Ratio 1.0 (1.0-2.1) 01/10/18 11:17 - Hospital Course Hospital Course: PATIENT WAS ADMITTED FOR PVD AND NECROTIC TOE AAOX3 DENIES CHEST PAIN /SOB OR LEG PAIN NO SIGN OF DISTRESS NOTED PATIENT SEEN AND EXAMINED AT THE BEDSIDE DR BRUCE NO INTERVENTION NEEDED AND CLEAR PATIENT FOR DC AND F/U IN HIS OFFICE PATIENT FOR DC WITH NO ABX/ PATIENT NEED TO F/U WITH [employer] INVENTORY CONTROL EXECUTIVE OUT PATIENT FOLLOW UP WITH DR BRUCE IN ONE WEEK AT HIS OFFICE ---CALL FOR APPOINTMENT FOLLOW WITH DR STATON IN 1-2 WEEKS AT HIS OFFICE---CALL FOR APOINTMENT CONTINUE ALL YOUR HOME MEDICATION ORDER WOUND CARE ORDER CLEAN WITH BETADINE AND DRESSING DRY DAILY ACTIVITY TOLERATED GO TO THE EMERGENCY ROOM IF SYMPTOMS RETURN OR WORSENING DISCUSS WITH PATIENT WHO AGREE AND VERBALIZED UNDERSTANDING Discharge Exam - Head Exam Head Exam: ATRAUMATIC Discharge Plan - Follow Up Plan Condition: STABLE Disposition: HOME/ ROUTINE Instructions: Type 2 Diabetes, Atrial Fibrillation, Dangers of Secondhand Smoke , Diabetes Diet , Gangrene (DC), Peripheral Artery Disease (DC) Additional Instructions: FOLLOW UP WITH DR BRUCE IN ONE WEEK AT HIS OFFICE ---CALL FOR APPOINTMENT FOLLOW WITH DR STATON IN 1-2 WEEKS AT HIS OFFICE---CALL FOR APPOINTMENT CONTINUE ALL YOUR HOME MEDICATION ORDER WOUND CARE ORDER CLEAN WITH BETADINE AND DRESSING DRY DAILY NO ANTIBIOTICS PER DR STATON F/U WITH [employer] INVENTORY CONTROL EXECUTIVE ACTIVITY TOLERATED CALL DR STATON OR GO TO THE EMERGENCY ROOM IF SYMPTOMS RETURN OR WORSENING Referrals: Gab Bruce DPM [Doctor Podiatric Medicine] - Rolly Staton MD [Staff Provider] -
== END 2018-01-10 15:00 | disposition home health service (06) | DRG 300 ==
LOC: C.ER 10:17 → C.9E 13:11 → C.5S 16:30 → OBSVTOIN 01-09 11:15
PROVIDERS: ADMIT Internal Medicine; ATTEND Internal Medicine
DX: E11.52 Type 2 diabetes mellitus with diabetic peripheral angiopathy with gangrene (principal); E11.621 Type 2 diabetes mellitus with foot ulcer; L97.519 Non-pressure chronic ulcer of other part of right foot with unspecified severity; L89.619 Pressure ulcer of right heel, unspecified stage; I48.91 Unspecified atrial fibrillation; I10 Essential (primary) hypertension; J43.9 Emphysema, unspecified; E78.00 Pure hypercholesterolemia, unspecified; Z77.22 Contact with and (suspected) exposure to environmental tobacco smoke (acute) (chronic); Z87.891 Personal history of nicotine dependence; Z95.820 Peripheral vascular angioplasty status with implants and grafts; Z86.73 Personal history of transient ischemic attack (TIA), and cerebral infarction without residual deficits; Z79.4 Long term (current) use of insulin